=== PATIENT | female | born 1955 | race Caucasian/White ===

== ENCOUNTER 2022-06-05 20:04 | Emergency (ER) | payer MEDICARE, BC, SELFPAY ==
[2022-06-05] VITALS (10 sets, daily range): BP systolic 115–160; BP diastolic 70–94; PULSE 68–104; RESP 18; TEMP 36.4; O2SAT 66–99; BMI 30.9
--- NOTE | 2022-06-05 20:23 | CRLHL7_ITS ---
For Patients: As a result of the Century Cures Act, medical imaging exams and procedure reports are released immediately into your electronic medical record. You may view this report before your referring provider. If you have questions, please contact your health care provider. Indication: Right-sided abdominal pain Technique: Noncontrast CT abdomen and pelvis Comparison: CT and pelvis 09/23/2021 Findings: Heart size is mildly enlarged calcified left hilar lymph nodes strandy left upper lobe probable fibrotic change left upper lobe granuloma. 7 millimeter pulmonary nodule medial right lower lobe series 2, image 31 without change. Spleen adrenal glands pancreas unremarkable. As normal caliber abdominal aorta. 6 millimeter right distal ureteral stone causing moderate hydronephrosis and hydroureter. Additional nonobstructing right-sided renal calculi left kidney unremarkable. Urinary bladder unremarkable. There is diverticulosis No suspicious bony lesions are seen. Impression: 1. 6 millimeter right distal ureteral stone causing moderate hydronephrosis. 2. 7 millimeter pulmonary nodule per Fleischner society guidelines without change in 2020. Please note that all CT scans at this facility use dose modulation, iterative reconstruction, and/or weight-based dosing when appropriate to reduce radiation dose to as low as reasonably achievable. Dictated by Antoinette Aldrich MD @ 06/05/2022 9:51:37 PM (Electronically Signed)
[2022-06-05] MEDS: KETOROLAC 30 MG/ML inj 15 MG IVP (20:25)
[2022-06-05] MEDS: HYDROmorphone 0.5 mg/0.5 ml inj IVP (20:26)
[2022-06-05] MEDS: ONDANSETRON 2 MG/ML inj 4 MG IVP (20:35)
--- NOTE | 2022-06-05 20:38 | ED_ITS ---
HPI - Abdominal Pain General Date Seen: 06/05/22 Chief Complaint: Abdominal Pain Stated Complaint: KIDNEY STONE/VOMITING Time Seen by Provider: 06/05/22 20:22 Source: patient and family Mode of arrival: wheelchair Limitations: no limitations History of Present Illness HPI narrative: Patient is 66-year-old female brought in ambulatory by wheelchair for acute onset of right groin pain that started approximately 1 hour ago this is associated with nausea vomiting, and feels like previous kidney stones that she has had. He has had previous surgery, for the stones, this is been sometime ago . She did take some Pepto-Bismol at home, but this did not help, for the last 2-3 days she has had some red urine possibly blood with associated with this. Denies any fevers chills or sweats, there is no blood in her vomitus, she has had no diarrhea, describes the pain as 10/10. There is no radiation to her back of the pain, did not start in her back and radiate down to the groin. MD elicited complaint: abdominal pain Pertinent past history: kidney stones Onset (ago): hour(s) (1) Pain Consistency: constant Location: diffuse and RLQ Severity: severe Quality: cramping Radiation: none Migration to: no migration and RLQ Exacerbating factors: movement Relieving factors: nothing Context: history of similar episodes Associated symptoms: nausea, vomiting and hematuria Treatments prior to arrival: antacids Related Data Home Medications Medication Instructions Recorded Confirmed amlodipine 5 mg tablet 5 mg PO DAILY 06/05/22 06/05/22 atenolol 50 mg tablet 50 mg PO DAILY 06/05/22 06/05/22 hydrochlorothiazide 25 mg tablet 25 mg PO DAILY 06/05/22 06/05/22 lisinopril 40 mg tablet 40 mg PO DAILY 06/05/22 06/05/22 potassium chloride 20 mEq 20 meq PO BID 06/05/22 06/05/22 tablet,extended release(part/cryst) warfarin 1 mg tablet 1 mg PO 06/05/22 Allergies Allergy/AdvReac Type Severity Reaction Status Date / Time iodine Allergy Severe Verified 06/05/22 20:21 Review of Systems Status of ROS Reports: 10 or more systems reviewed and unremarkable except as noted in History and below [facility] Medical History (Updated 06/05/22 @ 22:52 by Jose Howard MD) Asthma 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 Essential hypertension Hypertriglyceridemia Liver lesion Malignant carcinoid tumor of lung Nephrolithiasis Pulmonary embolism on right Renal stone Surgical History (Updated 06/05/22 @ 21:20 by Reed Echevarria RN) No significant past surgical history Social History Smoking Status: Never smoker Do you use any of these nicotine containing products: None How often do you have a drink containing alcohol: never How often do you have six or more drinks on one occasion: Never AUDIT-C Alcohol total score: 0 Non-prescribed substance use: denies use Exam Narrative: Exam Narrative: I see a woman in moderate distress, retching, shaking also. Her vital signs are stable, Patient is speaking normally, no problem with slurring words, oriented x3. Head eyes ears nose and throat exam show equal pupils, no scleral icterus, extraocular muscles are normal, no facial droop, speech is normal, trachea normal and midline. Thyroid normal midline palpable not enlarged. Chest shows symmetrical rise bilaterally, normal auscultation with no wheezes, no increased work of breathing, no overt bruising or lesions seen, no tenderness is noted on auscultation. Heart sounds normal with no S3-S4 no murmurs clicks or gallops. Abdomen shows no obvious masses or hepatosplenomegaly, no organomegaly, bowel sounds are normal in all quadrants. No tenderness is noted also in all quadrants. Upper and lower extremities show normal power, normal range of motion, pulses are normal, sensations normal, fine motor movements are normal, pelvis is stable to rocking. Cervical spine shows normal range of motion, and palpably not tender. Thoracic spine shows normal range of motion, and palpably not tender, lumbar spine shows no tenderness to palpation percussion and is otherwise normal range of motion. Skin shows no rashes, petechiae or eccymosis. No reproducible abdominal pain is seen, there is no CVA tenderness, Const: Vital Signs, click to edit/add: Vital Signs - 24 hr 06/05/22 20:14 06/05/22 20:25 06/05/22 21:10 Temperature 97.5 F L 97.5 F L 97.5 F L Pulse Rate Pulse Rate [Pulse Oximeter] 104 H Respiratory Rate 18 Blood Pressure Blood Pressure [Le ft Upper Arm] 160/94 H Pulse Oximetry Oxygen Delivery Me thod Room Air Oxygen Flow Rate 06/05/22 20:32 06/05/22 20:33 06/05/22 20:38 Temperature Pulse Rate 83 87 77 Pulse Rate [Pulse Oximeter] Respiratory Rate Blood Pressure 141/92 H 143/79 H Blood Pressure [Le ft Upper Arm] Pulse Oximetry 67 L 66 L 94 Oxygen Delivery Me thod Oxygen Flow Rate 06/05/22 21:31 06/05/22 22:02 06/05/22 22:31 Temperature Pulse Rate 72 68 73 Pulse Rate [Pulse Oximeter] Respiratory Rate Blood Pressure 121/77 115/70 123/71 Blood Pressure [Le ft Upper Arm] Pulse Oximetry 99 99 94 Oxygen Delivery Me thod Oxygen Flow Rate 06/05/22 20:35 Temperature Pulse Rate Pulse Rate [Pulse Oximeter] Respiratory Rate Blood Pressure Blood Pressure [Le ft Upper Arm] Pulse Oximetry 97 Oxygen Delivery Me thod Nasal Cannula Oxygen Flow Rate 2 Documenting provider has reviewed patient's vital signs: yes Course Course Hospital Course: Patient's pain improved markedly with the Toradol, the Dilaudid, she initially had some low oxygen levels requiring oxygen with the Dilaudid, she was weaned off and was on room air and able to ambulate normally by the end. This point I think it would be reasonable to discharge her home, with oral medications for pain, have her follow up with primary care return here if signs and symptoms of worsening. Her and her partner were agreeable to this. Vital Signs Vital signs: Initial Vital Signs Temperature 97.5 F L 06/05/22 20:14 Temperature Source Temporal Artery Scan 06/05/22 20:14 Pulse Rate 104 H 06/05/22 20:14 Respiratory Rate 18 06/05/22 20:14 Blood Pressure 160/94 H 06/05/22 20:14 Blood Pressure Mean 116 06/05/22 20:14 Blood Pressure Position Sitting 06/05/22 20:14 Oxygen Delivery Method 06/05/22 20:14 Vital Signs Temperature 97.5 F L 06/05/22 20:14 Pulse Rate 104 H 06/05/22 20:14 Respiratory Rate 18 06/05/22 20:14 Blood Pressure 160/94 H 06/05/22 20:14 Oxygen Delivery Method 06/05/22 20:14 Temperature 97.5 F L 06/05/22 21:10 Pulse Rate 73 06/05/22 22:31 Respiratory Rate 18 06/05/22 20:14 Blood Pressure 123/71 06/05/22 22:31 Pulse Oximetry 94 06/05/22 22:31 Oxygen Delivery Method 06/05/22 20:35 Oxygen Flow Rate 2 06/05/22 20:35 MDM - Abdominal Pain MDM Narrative Medical decision making narrative: During the evaluation of this patient I considered multiple differential diagnosis including life-threatening differentials which are appendicitis, aortic aneurysm, mesenteric ischemia, bowel perforation, ectopic , vol vulus and bowel obstruction, other differential diagnosis include but are not limited to inflammatory bowel disease, cholecystitis, pancreatitis, hepatitis, gastritis, GERD, diverticulitis, peptic ulcer disease, pyelonephritis/UTI, renal colic/stone, pelvic inflammatory disease, cervicitis, endometritis, intrauterine , dysfunctional uterine bleeding, ovarian cyst/torsion, spontaneous as well as other etiologies Medical Records Attestation: I reviewed the patient's medical records. Lab Data Attestation: I reviewed the patient's lab results. Labs: Lab Results 06/05/22 06/05/22 06/05/22 Range/Units 20:24 20:24 21:07 WBC 10.59 (4.50-11.00) K/uL RBC 5.04 (4.00-5.20) m/uL Hgb 14.2 (12.0-16.0) gm/dL Hct 44.6 (33.0-51.0) % MCV 89 (80-100) fL MCH 28 (26-34) pg MCHC 32 (32-36) gm/dL RDW Coeff of Zohaib 13.4 (11.5-15.5) % Plt Count 395 (140-440) K/uL Neut % (Auto) 69.7 (42.0-72.0) % Lymph % (Auto) 20.8 (20-44) % [place] % (Auto) 7.4 (0.0-11.0) % Eos % (Auto) 1.6 (0.0-7.0) % Baso % (Auto) 0.4 (0.0-3.0) % Neut # (Auto) 7.39 H (1.7-7.0) K/uL Lymph # (Auto) 2.20 (0.90-2.90) K/uL [place] # (Auto) 0.80 (0.00-0.90) K/UL Eos # (Auto) 0.17 (0.00-0.50) K/uL Baso # (Auto) 0.04 (0.00-0.30) K/uL Abs Immat Gran (auto) 0.01 (0.00-0.30) K/uL Sodium 143 (135-149) mmol/L Potassium 3.6 (3.6-5.1) mmol/L Chloride 104 (96-114) mmol/L Carbon Dioxide 28 (20-32) mmol/L BUN 24 (7-30) mg/dL Creatinine 1.1 (0.5-1.5) mg/dL Estimated Creat Clear 42.86 Estimated GFR 55 ml/min Glucose 177 H (60-115) mg/dL Calcium 9.3 (8.4-10.6) mg/dL Urine Color Brown A (Yellow) Urine Appearance Cloudy A (Clear) Urine pH 5.5 (5.0-8.5) Ur Specific [place] 1.025 (1.000-1.030) Urine Protein 2+ A (Negative) Urine Glucose (UA) Negative (Negative) Urine Ketones Negative (Negative) Urine Blood 3+ A (Negative) Urine Nitrite Negative (Negative) Urine Bilirubin 1+ A (Negative) Urine Urobilinogen 0.2 (0.2-1.0) Ur Leukocyte Esterase Negative (Negative) Urine RBC >100 A (0-2) Urine WBC 2-5 (0-5) Ur Squamous Epith Cells Few (None-Few) Amorphous Sediment Many A (None) Other Sediment YEAST (None) Urine Bacteria Many A (None) Imaging Data CT scan - abdomen: Attestation: I have reviewed the pertinent imaging results. My impression: Large right-sided mid ureter stone with moderate hydronephrosis is noted. Stone measures 4 x 6 mm. Radiologist's impression: Patient: HERNANDO LEON Facility:?[facility] Patient ID:?[id number] Site Patient ID:?[id number]. Site :?[id number] Study:?CT Abdomen/Pelvis without contrast stone study-06/05/2022 9:08:36 PM Ordering Physician:?Seper Jose Final Report: Indication: Right-sided abdominal pain Technique: Noncontrast CT abdomen and pelvis Comparison: CT and pelvis 09/23/2021 Findings: Heart size is mildly enlarged calcified left hilar lymph nodes strandy left upper lobe probable fibrotic change left upper lobe granuloma. 7 millimeter pulmonary nodule medial right lower lobe series 2, image 31 without change. Spleen adrenal glands pancreas unremarkable. As normal caliber abdominal aorta. 6 millimeter right distal ureteral stone causing moderate hydronephrosis and hydroureter. Additional nonobstructing right-sided renal calculi left kidney unremarkable. Urinary bladder unremarkable. There is diverticulosis No suspicious bony lesions are seen. Impression: 1. 6 millimeter right distal ureteral stone causing moderate hydronephrosis. 2. 7 millimeter pulmonary nodule per Fleischner society guidelines without change in 2020. Please note that all CT scans at this facility use dose modulation, iterative reconstruction, and/or weight-based dosing when appropriate to reduce radiation dose to as low as reasonably achievable. Dictated by Antoinette Aldrich MD @ 06/05/2022 9:51:37 PM (Electronic Signature) Discharge Plan Discharge Clinical Impression: Renal colic on right side Patient Disposition: Home w/ Parent or Adult Condition: Improved Instructions: Renal Colic (ED) Additional Instructions: Home rest use of medications as directed, ibuprofen 800 mg p.o. t.i.d., Zofran for vomiting, narcotic medication as needed p.r.n.. Please use lots of fluids, and also follow-up with primary care within the next 3 days for recheck. Return here if increasing vomiting, fevers chills, or other issues. Prescriptions: No Action amlodipine 5 mg tablet 5 mg PO DAILY atenolol 50 mg tablet 50 mg PO DAILY hydrochlorothiazide 25 mg tablet 25 mg PO DAILY lisinopril 40 mg tablet 40 mg PO DAILY potassium chloride 20 mEq tablet,ER particles/crystals 20 meq PO BID warfarin 1 mg tablet 1 mg PO Label Comments: take by mouth 2mg every Mon, , Th; 1mg all other days Follow Up/Referrals: Amy Mclaughlin DO [Primary Care Provider] - Stand Alone Forms: Move In History Info Instructions
[2022-06-05] MEDS: 0.9 % SODIUM CHLORIDE 1000 ml 1,000 ML IV (20:45)
[2022-06-05 21:05] LABS: Basophils Absolute Auto 0.04 K/uL (0.00-0.30); Basophils Percent Auto 0.4 % (0.0-3.0); Eosinophils Absolute Auto 0.17 K/uL (0.00-0.50); Eosinophils Percent Auto 1.6 % (0.0-7.0); Hematocrit 44.6 % (33.0-51.0); Hemoglobin* 14.2 gm/dL (12.0-16.0); Immature Granulocytes Abs Auto 0.01 K/uL (0.00-0.30); Lymphocytes Percent Auto 20.8 % (20-44); Mean Corpuscular HGB Conc 32 gm/dL (32-36); Mean Corpuscular Hemoglobin 28 pg (26-34); Mean Corpuscular Volume 89 fL (80-100); Monocytes Percent Auto 7.4 % (0.0-11.0); Neutrophils Absolute Auto 7.39 K/uL (1.7-7.0); Neutrophils Percent Auto 69.7 % (42.0-72.0); Platelet Count* 395 K/uL (140-440); RDW Coefficient of Variation % 13.4 % (11.5-15.5); Red Blood Count 5.04 m/uL (4.00-5.20); White Blood Count* 10.59 K/uL (4.50-11.00)
[2022-06-05 21:10] LABS: Slide Review Reflex No
[2022-06-05 21:19] LABS: Appearance Urine Cloudy (Clear); Bilirubin Urine 1+ (Negative); Blood Urine 3+ (Negative); Color Urine Brown (Yellow); Glucose Urine Negative (Negative); Ketones Urine Negative (Negative); Leukocyte Esterase Urine Negative (Negative); Nitrite Urine Negative (Negative); Protein Urine 2+ (Negative); Specific Gravity Urine 1.025 (1.000-1.030); Urobilinogen Urine 0.2 (0.2-1.0); pH Urine 5.5 (5.0-8.5)
[2022-06-05 21:24] LABS: Blood Urea Nitrogen* 24 mg/dL (7-30); Calcium* 9.3 mg/dL (8.4-10.6); Carbon Dioxide* 28 mmol/L (20-32); Chloride* 104 mmol/L (96-114); Creatinine* 1.1 mg/dL (0.5-1.5); Est. Creatinine Clearance* 42.86; Estimated Glomerular Filt Rate 55 ml/min; Glucose* 177 mg/dL (60-115); Potassium* 3.6 mmol/L (3.6-5.1); Sodium* 143 mmol/L (135-149)
[2022-06-05 21:30] LABS: Amorphous Sediment Urine Many; Bacteria Urine Many; RBC Urine >100 (0-2); Squamous Epithelial Cell Urine Few (None-Few)
[2022-06-05 21:31] LABS: Other Sediment Urine YEAST
--- NOTE | 2022-06-05 22:51 | ED.NURSE ---
pt walked around ER, returned to room on room air and was 86% oximetry, updated.
== END 2022-06-05 23:02 | disposition home or self-care (01) ==
PROVIDERS: Emergency Provider Family Medicine; PCP Family Medicine
DX: N20.0 Calculus of kidney (principal)
CPT/HCPCS: 36415; 74176; 80048; 81001; 85025; 87086; 96374; 96375; 99284; 99285; J1170; J1885; J2405; J7030

== ENCOUNTER 2023-06-19 07:00 | Outpatient (CLI) | payer MEDICARE, BC, SELFPAY ==
--- NOTE | 2023-06-19 08:42 | W.ANESCHARGE ---
Anesthesia Charges Start Date/Time Anesthesia Start Date: 06/19/23 Anesthesia Start Time: 08:20 Stop Date/Time Anesthesia Stop Date: 06/19/23 Anesthesia Stop Time: 08:41
--- NOTE | 2023-06-19 09:42 | W.ANESCHARGE ---
Anesthesia Charges Start Date/Time Anesthesia Start Date: 06/19/23 Anesthesia Start Time: 08:20 Stop Date/Time Anesthesia Stop Date: 06/19/23 Anesthesia Stop Time: 08:41
== END 2023-06-19 07:01 | disposition home or self-care (01) ==
LOC: OP CLINIC 07:01
PROVIDERS: PCP Family Medicine; Visit Provider Internal Medicine Gastroenterology
DX: Z12.11 Encounter for screening for malignant neoplasm of colon (principal); K64.4 Residual hemorrhoidal skin tags; K64.8 Other hemorrhoids; Z86.010 Personal history of colon polyps
CPT/HCPCS: 00811; 00812; 45378; J2704

== ENCOUNTER 2023-08-13 12:12 | Emergency (ER) | payer MEDICARE, BC, SELFPAY ==
[2023-08-13 12:22] VITALS: BP 158/94; PULSE 87; RESP 18; TEMP 36.9; O2SAT 100; BMI 27.5
--- NOTE | 2023-08-13 12:40 | ED_ITS ---
HPI - General Adult General Chief complaint: Ear/Nose/Throat Problem Stated complaint: Throat pain on one side, difficulty breathing Time Seen by Provider: 08/13/23 12:32 History of Present Illness HPI narrative: Patient is a 59 year white female who is takes multiple medications she was taking them this morning about 10:00 a.m. and she felt some things persistently in her left side of her throat. She is able to swallow water she has got 100% O2 sat. She was concerned about this and came to the ER. She also thought she might have a sore tooth on that left side, but has not any fever chills. She is able to swallow water has not vomited, is able to eat normally. Related Data Home Medications Medication Instructions Recorded Confirmed amlodipine 5 mg tablet 5 mg PO DAILY 06/05/22 06/05/22 atenolol 50 mg tablet 50 mg PO DAILY 06/05/22 06/05/22 hydrochlorothiazide 25 mg tablet 25 mg PO DAILY 06/05/22 06/05/22 lisinopril 40 mg tablet 40 mg PO DAILY 06/05/22 06/05/22 potassium chloride 20 mEq 20 meq PO BID 06/05/22 06/05/22 tablet,extended release(part/cryst) warfarin 1 mg tablet 1 mg PO 06/05/22 Allergies Allergy/AdvReac Type Severity Reaction Status Date / Time iodine Allergy Severe Verified 08/13/23 12:26 Review of Systems Status of ROS: Reports: 6 or more systems reviewed and unremarkable except as noted in History and below [facility] Medical History Atypical ductal hyperplasia of left breast ?N60.92 - Unspecified benign mammary dysplasia of left breast (ICD-10) 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 - Malignant carcinoid tumor of the bronchus and lung (ICD-10) Hypertriglyceridemia ?E78.1 - Pure hyperglyceridemia (ICD-10) Liver lesion ?K76.9 - Liver disease, unspecified (ICD-10) Renal stone ?N20.0 - Calculus of kidney (ICD-10) Pulmonary embolism on right ?I26.99 - Other pulmonary embolism without acute cor pulmonale (ICD-10) Carcinoid tumor of lung ?D3A.090 - Benign carcinoid tumor of the bronchus and lung (ICD-10) Nephrolithiasis ?N20.0 - Calculus of kidney (ICD-10) Asthma ?J45.909 - Unspecified asthma, uncomplicated (ICD-10) Essential hypertension ?I10 - Essential (primary) hypertension (ICD-10) Surgical History No significant past surgical history Social History Smoking Status: Never smoker Do you use any of these nicotine containing products: None How often do you have a drink containing alcohol: never How often do you have six or more drinks on one occasion: Never AUDIT-C Alcohol total score: 0 Non-prescribed substance use: denies use Exam Narrative: Exam Narrative: Objective: Patient's vital signs are within normal limits other than slightly elevated systolic pressure, O2 sats 100% on room air, patient is noncyanotic Patient is alert orient x3 Mouth exam is clear no redness or erythema throat is clear, neck supple, pulse regular Const: Vital Signs, click to edit/add: Vital Signs - 24 hr 08/13/23 12:22 Temperature 98.5 F Pulse Rate [Right Pulse Oximeter] 87 Respiratory Rate 18 Blood Pressure [Ri ght Upper Arm] 158/94 H Pulse Oximetry 100 Oxygen Delivery Me thod Room Air Course Vital Signs Vital signs: Initial Vital Signs Temperature 98.5 F 08/13/23 12:22 Temperature Source Temporal Artery Scan 08/13/23 12:22 Pulse Rate 87 08/13/23 12:22 Pulse Rhythm Regular 08/13/23 12:22 Pulse Strength 3+ Normal 08/13/23 12:22 Respiratory Rate 18 08/13/23 12:22 Blood Pressure 158/94 H 08/13/23 12:22 Blood Pressure Mean 115 H 08/13/23 12:22 Blood Pressure Position Supine 08/13/23 12:22 Pulse Oximetry 100 08/13/23 12:22 Oxygen Delivery Method Room Air 08/13/23 12:22 Vital Signs Temperature 98.5 F 08/13/23 12:22 Pulse Rate 87 08/13/23 12:22 Respiratory Rate 18 08/13/23 12:22 Blood Pressure 158/94 H 08/13/23 12:22 Pulse Oximetry 100 11/05/23 12:22 Oxygen Delivery Method Room Air 08/13/23 12:22 Temperature 98.5 F 08/13/23 12:22 Pulse Rate 87 08/13/23 12:22 Respiratory Rate 18 08/13/23 12:22 Blood Pressure 158/94 H 08/13/23 12:22 Pulse Oximetry 100 08/13/23 12:22 Oxygen Delivery Method Room Air 08/13/23 12:22 Medical Decision Making MDM Narrative Medical decision making narrative: [age] year white female was taking her pills today and then had some discomfort on the left side of her throat. She is able to eat and drink normally no difficulty breathing. At this point I think she probably has a scratch to the throat area and I think we should observe this over the next 24 hours. If they continue to have symptoms and can return back to the ED and we can consult with endoscopy regarding looking to see if there is any foreign material, however she is able to eat and drink and I think this will likely be a scratch and should improve over time. Return to ED sooner problems or concerns. Also looking in her mouth she had poor dentition but I do not see any obvious infection. Discharge Plan Discharge Clinical Impression: Throat irritation Patient Disposition: Home w/ Parent or Adult Condition: Stable Additional Instructions: Normal diet, may take some Advil or Tylenol if needed, recheck tomorrow still having symptoms and we could consider endoscopy or look from above with our Endoscopy Department. I suspect you have a scratch from taking her pills in your throat and will have to see if this improves over the next day. Return sooner problems or concerns Activity Level: No Restrictions Discharge Diet: Regular Prescriptions: No Action amlodipine 5 mg tablet 5 mg PO DAILY atenolol 50 mg tablet 50 mg PO DAILY hydrochlorothiazide 25 mg tablet 25 mg PO DAILY lisinopril 40 mg tablet 40 mg PO DAILY potassium chloride 20 mEq tablet,ER particles/crystals 20 meq PO BID warfarin 1 mg tablet 1 mg PO Patient Comments: take by mouth 2mg every Mon, , ; 1mg all other days Follow Up/Referrals: Amy Mclaughlin DO [Primary Care Provider] - Stand Alone Forms: [facility] Info Instructions
== END 2023-08-13 12:51 | disposition home or self-care (01) ==
LOC: ED 12:46
PROVIDERS: Emergency Provider Family Medicine; PCP Family Medicine
DX: R07.0 Pain in throat (principal)
CPT/HCPCS: 99283

== ENCOUNTER 2023-08-28 01:14 | Outpatient (CLI) | payer MEDICARE, BC, SELFPAY | END 2023-08-28 01:15 | disposition home or self-care (01) | LOC: AMB 08-29 10:13 | PROVIDERS: PCP Family Medicine; Visit Provider Family Medicine | DX: R10.9 Unspecified abdominal pain (principal) | CPT/HCPCS: A0425; A0427 ==

== ENCOUNTER 2023-08-28 01:35 | Emergency (ER) | payer MEDICARE, BC, SELFPAY ==
[2023-08-28 01:39] VITALS: BP 174/82; PULSE 75; RESP 16; TEMP 36.4; O2SAT 99; BMI 37.2
--- NOTE | 2023-08-28 02:10 | CRLHL7_ITS ---
For Patients: As a result of the Century Cures Act, medical imaging exams and procedure reports are released immediately into your electronic medical record. You may view this report before your referring provider. If you have questions, please contact your health care provider. INDICATION: Right abdominal pain, history renal calculi TECHNIQUE: CT Abdomen and pelvis without i.v. contrast. Coronal and sagittal reformats were obtained. COMPARISON: 06/05/2022, 09/27/2020 FINDINGS: Lower chest: Volume loss in the left lung base is noted with pleural parenchymal scarring. There is a 7 mm round nodule in the medial right lower lobe noted without interval change from 2020. This stability in nearly 3 years is consistent with a benign etiology. Liver: Unremarkable. Spleen: Unremarkable. Pancreas: Unremarkable. Gallbladder: Unremarkable. Kidney: There is a 10 mm stone present within the distal right ureter with 2 smaller adjacent ureteral calculi present measuring up to 3 mm. These cause moderate right hydroureter and renal pelviectasis. At least 4 punctate non obstructing stones are seen within the right renal pelvis. The left kidney is unremarkable in appearance. Adrenal: Unremarkable. Bowel: Moderate diverticulosis of the sigmoid colon is present with no evidence of diverticulitis. The appendix is not identified. Vascular: Unremarkable. Lymph: Unremarkable. Peritoneum: Unremarkable. No pneumoperitoneum is seen. No significant ascites is noted. Pelvis: Unremarkable. Soft tissue: Unremarkable. Bone: Unremarkable for age. IMPRESSIONS: 1. There is a 10 mm stone present within the distal right ureter with 2 smaller adjacent ureteral calculi present measuring up to 3 mm. These cause moderate right hydroureter and renal pelviectasis. Dictated by Abundio Montes MD @ 08/28/2023 3:04:09 AM Please note that all CT scans at this facility use dose modulation, iterative reconstruction, and/or weight-based dosing when appropriate to reduce radiation dose to as low as reasonably achievable. Dictated by: Abundio Montes MD @ 08/28/2023 03:04:12 (Electronically Signed)
--- NOTE | 2023-08-28 02:19 | ED_ITS ---
HPI - General Adult General Chief complaint: Abdominal Pain Stated complaint: abdominal pain Time Seen by Provider: 08/28/23 01:50 Source: patient, family and EMS Mode of arrival: EMS Limitations: no limitations History of Present Illness HPI narrative: 67-year-old female presents the emergency department with right lower quadrant abdominal pain for the past 2 hours. Last bowel movement was about an hour ago, uncomplicated. No diarrhea, no blood. She is not experiencing any nausea or vomiting. Pain was sudden onset with no injury or trauma. Feel similar to when she had a kidney stone about 10 years ago. Reports that those records are in [place], I do not have access to those records. Appetite has been normal. Reports her urine has been a little darker than usual for the last 2 days but she did not think much of it. No known sick contacts. No dysuria. It sounds like 10 years ago she had a stent placed for her kidney stone and then the stent was removed with no further complications. No kidney stones since. Pain was rather sudden onset, not gradual. No history of bowel obstruction. Tried taking 1 Tylenol tablet of 325 mg with no significant improvement in her symptoms. It is not surprising that this dose did not help. She reports an allergy Zofran that sounds like she was given the medication and it made her jittery when she had a kidney stone 10 years ago. I am uncertain if it was more the other medications or her clinical condition but she is not experiencing nausea at this time therefore it will not need to be challenged. She also reports a contrast dye allergy but has tolerated premedication with no difficulty in the past. Past medical history is notable for pulmonary embolism, she is anticoagulated long-term on Coumadin. Also hypertension on 4 agents. Denies history of coronary artery disease. She has a history of lung cancer and reports that they are watching a spot on her right lung and she has had partial lung removal on the left side x2 for lung cancer in 2005 in 2010. She is a nonsmoker. Medications reviewed. In addition to what is listed, she reports that she also uses Premarin vaginally about once a month. ROS is notable for the GI and musculoskeletal an urinary symptoms as above. Otherwise denies times 12 systems. Related Data Home Medications Medication Instructions Recorded Confirmed amlodipine 5 mg tablet 5 mg PO DAILY 06/05/22 06/05/22 atenolol 50 mg tablet 50 mg PO DAILY 06/05/22 06/05/22 hydrochlorothiazide 25 mg tablet 25 mg PO DAILY 06/05/22 06/05/22 lisinopril 40 mg tablet 40 mg PO DAILY 06/05/22 06/05/22 potassium chloride 20 mEq 20 meq PO BID 06/05/22 06/05/22 tablet,extended release(part/cryst) warfarin 1 mg tablet 1 mg PO 06/05/22 Previous Rx's Medication Instructions Recorded oxycodone 5 mg tablet 5 mg PO Q8H PRN pain #8 tabs 08/28/23 Allergies Allergy/AdvReac Type Severity Reaction Status Date / Time iodine Allergy Severe Verified 08/13/23 12:26 [facility] Medical History Atypical ductal hyperplasia of left breast ?N60.92 - Unspecified benign mammary dysplasia of left breast (ICD-10) 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 - Malignant carcinoid tumor of the bronchus and lung (ICD-10) Hypertriglyceridemia ?E78.1 - Pure hyperglyceridemia (ICD-10) Liver lesion ?K76.9 - Liver disease, unspecified (ICD-10) Renal stone ?N20.0 - Calculus of kidney (ICD-10) Pulmonary embolism on right ?I26.99 - Other pulmonary embolism without acute cor pulmonale (ICD-10) Carcinoid tumor of lung ?D3A.090 - Benign carcinoid tumor of the bronchus and lung (ICD-10) Nephrolithiasis ?N20.0 - Calculus of kidney (ICD-10) Asthma ?J45.909 - Unspecified asthma, uncomplicated (ICD-10) Essential hypertension ?I10 - Essential (primary) hypertension (ICD-10) Surgical History No significant past surgical history Social History Smoking Status: Never smoker Do you use any of these nicotine containing products: None How often do you have a drink containing alcohol: never How often do you have six or more drinks on one occasion: Never AUDIT-C Alcohol total score: 0 Non-prescribed substance use: denies use Exam Const: Vital Signs, click to edit/add: Vital Signs - 24 hr 08/28/23 01:39 08/28/23 03:09 Temperature 97.5 F L Pulse Rate [Pulse Oximeter] 75 75 Respiratory Rate 16 16 Blood Pressure [Ri ght Upper Arm] 174/82 H 154/81 H Pulse Oximetry 99 96 Oxygen Delivery Me thod Room Air Room Air Documenting provider has reviewed patient's vital signs: yes Common normals: no apparent distress General appearance: cooperative Other: Moderate historian. HENMT: Common normals: normocephalic Head and scalp: normocephalic Face and sinus: normal facial exam Mouth: oral and palatal mucosa normal Throat: posterior oropharynx normal Eye: Common normals: conjunctivae normal General eye: normal appearance of both eyes Conjunctiva: conjunctiva(e) normal Neck & C-Spine: Common normals: full ROM and no lymphadenopathy Resp: Common normals: normal respiratory effort and no use of accessory muscles Effort & inspection: able to speak in complete sentences Other: Decreased breath sounds on the left side which is not unexpected with her history. No obvious crackle or wheeze. Cardio: Common normals: regular rate, regular rhythm, S1 normal heart sound and S2 normal heart sound Rate: regular rate Rhythm: regular rhythm Heart sounds: S1 normal and S2 normal GI: Common normals: Normal to inspection, nondistended, normoactive bowel sounds present, soft to palpation, no hepatosplenomegaly and no masses Palpation: soft and no hepatosplenomegaly Other: Tender to palpation of right lower quadrant but it does seem a bit diffuse. Ce rtainly no rebound tenderness or guarding : Common normals: no CVA tenderness Bladder/kidney exam: no CVA tenderness Back & Pelvis: Common normals: no CVA tenderness Extremity: Common normals: normal capillary refill Other: Trace dependent appearing edema. Neuro: Common normals: moves all extremities and no focal motor deficits Speech: speech normal Psych: Appearance: grossly normal Attitude: engaged Insight: insight good Judgement: judgment good Skin: Common normals: no rashes or lesions noted General skin exam: no rashes or lesions noted Course Course ED Course: Patient is already receiving a 0.5 L of normal saline from EMS. Will administer 15 mg of Toradol. Differential diagnosis including appendicitis, bowel obstruction, volvulus, pancreatitis, kidney stone, complicated urinary infection, among others. Recommend basic screening labs, urinalysis. Patient is allergic to contrast dye. Counseled patient that we certainly could perform CT with contrast and premedication but we may be able to see what we are looking for without the use of contrast dye. I recommend we proceed with CT scan if results are inconclusive that we repeat it with premedication and contrast dye. She was understanding of my rationale for this. Sudden onset of pain and similar prior history are suggestive mostly for kidney stone. Dark urine is also suspicious for recent hematuria. Await findings. Reevaluation(s) Time of Reevaluation #1: 03:21 Reevaluation #1: Preliminary CT findings reviewed with patient, right large ureteral stone noted, unlikely to pass without assistance. No signs of infection, hemorrhage or other complication noted on lab findings which is reassuring. She reported that the Toradol did not help with her pain but she is visibly much more comfortable. Will give 5 mg of oral oxycodone. Counseled patient that I will need to talk to Urology regarding next steps in care as she will need a procedure to help the stone pass. I did speak with Urology, Dr. Correia(sp?), and he is recommending outpatient treatment. Since there are no signs of infection, sepsis, hemorrhage or other worry, this can be done outpatient. Patient is to be given the clinic number to call and schedule her outpatient follow-up. She was instructed on this and verbalizes understanding. I counseled her on pain control with Tylenol, ibuprofen and limited oxycodone if needed. We reviewed the alarm symptoms that would warrant ED presentation showed ches weakness, fever, persistent vomiting. She should come back right away if these happen. She will hold her Coumadin at the recommendation of the urologist. I do feel like this is safe to do. It will need to be restarted after procedure, sooner if we anticipate a long wait for appointment. Written instructions provided all questions answered. Vital Signs Vital signs: Initial Vital Signs Temperature 97.5 F L 08/28/23 01:39 Temperature Source Temporal Artery Scan 08/28/23 01:39 Pulse Rate 75 08/28/23 01:39 Respiratory Rate 16 08/28/23 01:39 Blood Pressure 174/82 H 08/28/23 01:39 Blood Pressure Mean 112 H 08/28/23 01:39 Blood Pressure Position Supine 08/28/23 01:39 Pulse Oximetry 99 08/28/23 01:39 Oxygen Delivery Method Room Air 08/28/23 01:39 Vital Signs Temperature 97.5 F L 08/28/23 01:39 Pulse Rate 75 08/28/23 01:39 Respiratory Rate 16 08/28/23 01:39 Blood Pressure 174/82 H 08/28/23 01:39 Pulse Oximetry 99 08/28/23 01:39 Oxygen Delivery Method Room Air 08/28/23 01:39 Temperature 97.5 F L 08/28/23 01:39 Pulse Rate 75 08/28/23 03:09 Respiratory Rate 16 08/28/23 03:09 Blood Pressure 154/81 H 08/28/23 03:09 Pulse Oximetry 96 08/28/23 03:09 Oxygen Delivery Method Room Air 08/28/23 03:09 Medications Administered Medications: Generic Name Dose Route Start Last Admin Trade Name Freq PRN Reason Stop Dose Admin Ketorolac Tromethamine 15 mg 08/28/23 02:12 08/28/23 02:23 Ketorolac 15 Mg/Ml Inj IVP 08/28/23 02:13 15 mg ONCE ONE Administration Oxycodone HCl 5 mg 08/28/23 03:01 08/28/23 03:05 Oxycodone 5 Mg Tablet PO 08/28/23 03:02 5 mg ONCE ONE Administration Medical Decision Making Lab Data Lab results reviewed: Yes I reviewed the patient's lab results Lab results narrative: No signs of hemorrhage, infection or other complication. Creatinine clearance pretty good for comorbidities. Labs: Lab Results 08/28/23 08/28/23 Range/Units 02:30 02:54 WBC 8.83 (4.50-11.00) K/uL RBC 4.82 (4.00-5.20) m/uL Hgb 13.6 (12.0-16.0) gm/dL Hct 42.6 (33.0-51.0) % MCV 88 (80-100) fL MCH 28 (26-34) pg MCHC 32 (32-36) gm/dL RDW Coeff of Zohaib 13.4 (11.5-15.5) % Plt Count 359 (140-440) K/uL Neut % (Auto) 73.5 H (42.0-72.0) % Lymph % (Auto) 17.3 L (20-44) % [place] % (Auto) 7.0 (0.0-11.0) % Eos % (Auto) 1.9 (0.0-7.0) % Baso % (Auto) 0.2 (0.0-3.0) % Neut # (Auto) 6.50 (1.7-7.0) K/uL Lymph # (Auto) 1.50 (0.90-2.90) K/uL [place] # (Auto) 0.60 (0.00-0.90) K/UL Eos # (Auto) 0.17 (0.00-0.50) K/uL Baso # (Auto) 0.02 (0.00-0.30) K/uL Abs Immat Gran (auto) 0.01 (0.00-0.30) K/uL Imm/Tot Granulo (auto) 0.1 % INR 2.29 H (0.91-1.10) Sodium 141 (135-149) mmol/L Potassium 3.4 L (3.6-5.1) mmol/L Chloride 106 (96-114) mmol/L Carbon Dioxide 22 (20-32) mmol/L Anion Gap 13 (7-15) mEq/L BUN 19 (7-30) mg/dL Creatinine 0.9 (0.5-1.5) mg/dL Estimated Creat Clear 46.50 Estimated GFR 70 ml/min Glucose 143 H (60-115) mg/dL Lactate 2.6 H (0.5-1.9) mmol/L Calcium 9.1 (8.4-10.6) mg/dL Total Bilirubin 0.9 (0.1-1.5) mg/dL AST 30 (12-35) U/L ALT 23 (4-35) U/L Alkaline Phosphatase 97 (40-150) U/L C-Reactive Protein 1.1 H (0.5-1.0) mg/dL Total Protein 8.0 (6.0-8.3) g/dL Albumin 4.2 (3.3-5.0) g/dL Lipase 142 (23-300) U/L Urine Color Red A (Yellow) Urine Appearance Cloudy A (Clear) Urine pH 6.5 (5.0-8.5) Ur Specific [place] 1.025 (1.000-1.030) Urine Protein 2+ A (Negative) Urine Glucose (UA) Negative (Negative) Urine Ketones 1+ A (Negative) Urine Blood 3+ A (Negative) Urine Nitrite Negative (Negative) Urine Bilirubin Negative (Negative) Urine Urobilinogen 0.2 (0.2-1.0) Ur Leukocyte Esterase Trace A (Negative) Urine RBC >100 A (0-2) Urine WBC 25-50 A (0-5) Ur Squamous Epith Cells Moderate A (None-Few) Urine Bacteria Moderate A (None) Imaging Data CT scan - abdomen: Attestation: I have reviewed the pertinent imaging results. My impression: Large 9 mm kidney stone with several other smaller satellite stones right ureter, right hydronephrosis, no other abnormalities Radiologist's impression: IMPRESSIONS: 1. There is a 10 mm stone present within the distal right ureter with 2 smaller adjacent ureteral calculi present measuring up to 3 mm. These cause moderate right hydroureter and renal pelviectasis. Dictated by Abundio Montes MD @ 08/28/2023 3:04:09 AM Discharge Plan Discharge Clinical Impression: Right ureteral stone Patient Disposition: Home w/ Parent or Adult Condition: Improved Instructions: Ureteral Stones (ED), Ureteral Stent Placement (DC) Additional Instructions: As we discussed, you have a large stone in the right ureter. This is the tube that drains from your kidney to your bladder. Yours is about 1 cm and there are a couple of smaller stones behind it which are inconsequential. Luckily, there are no signs of infection or other complication. I have spoken with the urologist. He agrees that an intervention will need to happen. They would like to see you in the office this week. When the office opens in the morning, please call and request an appointment. I need you to specifically tell them as below: ?I was seen in the emergency department last night and was told that I have a 1 cm ureteral stone. The ER doctor spoke with the Urology physician on-call and has requested that I be seen in the clinic this week. I was told to hold my Coumadin and that there were no other signs of infection or complication. They will give you an appointment date and time. The urologist will decide if this needs lithotripsy, a stent or a different procedure. Unfortunately, it may be a bit of a drive. It is important that you are seen as soon as possible. Do not take your Coumadin as we discussed. Your INR today was 2.27. You will restart your Coumadin based on recommendations from your urologist or primary care physician. For pain, I recommend Tylenol 1000 mg every 6 hours, this is 2 extra-strength or 3 standard dose Tylenol. If this is not working, you may use ibuprofen 600 mg every 6 hours. You may alternate between the 2 for better pain control. I will give you a small supply of oxycodone to use if the pain is severe. Remember that this may cause some nausea and constipation. Hopefully you do not need this medication. If you began having high fever, persistent vomiting or weakness, you need to be re-evaluated in the emergency department. As we discussed, you will need urology services that we do not offer at our hospital. You would need to be transferred to a larger hospital such as [facility] or other similar large hospital. Some patients find it helpful to present there instead if that particular specialty is needed. We are more than happy to help treat any complications from this stone and can make sure you get transferred for adequate care if that is needed as well. Activity Level: Activity as Tolerated Discharge Diet: Regular Prescriptions: New oxycodone 5 mg tablet 5 mg PO Q8H PRN (Reason: pain) Qty: 8 0RF No Action amlodipine 5 mg tablet 5 mg PO DAILY atenolol 50 mg tablet 50 mg PO DAILY hydrochlorothiazide 25 mg tablet 25 mg PO DAILY lisinopril 40 mg tablet 40 mg PO DAILY potassium chloride 20 mEq tablet,ER particles/crystals 20 meq PO BID warfarin 1 mg tablet 1 mg PO Patient Comments: take by mouth 2mg every Mon, , ; 1mg all other days Follow Up/Referrals: Amy Mclaughlin DO [Primary Care Provider] - Stand Alone Forms: [id number] Info Instructions
[2023-08-28] MEDS: KETOROLAC 15 MG/ML inj IVP (02:23)
[2023-08-28 02:34] LABS: Lactate* 2.6 mmol/L (0.5-1.9)
[2023-08-28 02:38] LABS: Basophils Absolute Auto 0.02 K/uL (0.00-0.30); Basophils Percent Auto 0.2 % (0.0-3.0); Eosinophils Absolute Auto 0.17 K/uL (0.00-0.50); Eosinophils Percent Auto 1.9 % (0.0-7.0); Hematocrit 42.6 % (33.0-51.0); Hemoglobin* 13.6 gm/dL (12.0-16.0); Immature Granulocytes Abs Auto 0.01 K/uL (0.00-0.30); Immature Granulocytes Pct Auto 0.1 %; Lymphocytes Percent Auto 17.3 % (20-44); Mean Corpuscular HGB Conc 32 gm/dL (32-36); Mean Corpuscular Hemoglobin 28 pg (26-34); Mean Corpuscular Volume 88 fL (80-100); Neutrophils Percent Auto 73.5 % (42.0-72.0); Platelet Count* 359 K/uL (140-440); RDW Coefficient of Variation % 13.4 % (11.5-15.5); Red Blood Count 4.82 m/uL (4.00-5.20); White Blood Count* 8.83 K/uL (4.50-11.00)
[2023-08-28 02:39] LABS: Slide Review Reflex No
[2023-08-28 02:51] LABS: Albumin* 4.2 g/dL (3.3-5.0); Chloride* 106 mmol/L (96-114); Sodium* 141 mmol/L (135-149)
[2023-08-28 02:52] LABS: Potassium* 3.4 mmol/L (3.6-5.1)
[2023-08-28 02:53] LABS: Creatinine* 0.9 mg/dL (0.5-1.5); Estimated Glomerular Filt Rate 70 ml/min; INR 2.29 (0.91-1.10); Prothrombin Time 26.9 Seconds
[2023-08-28 02:54] LABS: Alanine Aminotransferase* 23 U/L (4-35); Alkaline Phosphatase* 97 U/L (40-150); Anion Gap 13 mEq/L (7-15); Aspartate Amino Transferase* 30 U/L (12-35); Bilirubin Total* 0.9 mg/dL (0.1-1.5); Blood Urea Nitrogen* 19 mg/dL (7-30); Carbon Dioxide* 22 mmol/L (20-32); Glucose* 143 mg/dL (60-115); Lipase* 142 U/L (23-300)
[2023-08-28 02:55] LABS: Calcium* 9.1 mg/dL (8.4-10.6)
[2023-08-28 02:57] LABS: C Reactive Protein* 1.1 mg/dL (0.5-1.0)
[2023-08-28 03:02] LABS: Appearance Urine Cloudy (Clear); Bilirubin Urine Negative (Negative); Blood Urine 3+ (Negative); Color Urine Red (Yellow); Glucose Urine Negative (Negative); Ketones Urine 1+ (Negative); Leukocyte Esterase Urine Trace (Negative); Nitrite Urine Negative (Negative); Protein Urine 2+ (Negative); Specific Gravity Urine 1.025 (1.000-1.030); Urobilinogen Urine 0.2 (0.2-1.0); pH Urine 6.5 (5.0-8.5)
[2023-08-28] MEDS: OXYCODONE 5 MG TABLET PO (03:05)
[2023-08-28 03:08] LABS: RBC Urine >100 (0-2)
[2023-08-28 03:09] VITALS: BP 154/81; PULSE 75; RESP 16; O2SAT 96
[2023-08-28 03:09] LABS: Bacteria Urine Moderate; Squamous Epithelial Cell Urine Moderate (None-Few); WBC Urine 25-50 (0-5)
--- NOTE | 2023-08-28 04:08 | PC.NURSE ---
patient DC, states understanding to DC instructions and denies any further question. ambulatory. patient states she is going to wait for transits to open for a ride because her walked [place]. went over options for transport with patient including ambulance w/c transport and cost and patient declined. offered to allow patient to wait in her room but patient states she will wait in the lobby.
== END 2023-08-28 04:07 | disposition home or self-care (01) ==
PROVIDERS: Emergency Provider Family Medicine; PCP Family Medicine
DX: N20.1 Calculus of ureter (principal)
CPT/HCPCS: 36415; 74176; 80053; 81003; 81015; 83605; 83690; 85025; 85610; 86140; 87086; 96374; 99284; A9270; J1885

== ENCOUNTER 2024-04-27 15:41 | Outpatient (CLI) | payer MEDICARE, BC, SELFPAY ==
--- OUTSIDE RECORDS SUMMARY | 2024-04-28 01:58 | XMS_ITS | Clinical Summary ---
Author Organization [facility] Address [place], [place] [address] Care Team Providers Care Product Design Manager Name Role Phone HebertAmy Primary Care Provider Allergies Active Allergy Reactions Criticality Noted Date [...] Comment Field 07/28/2014 sneeze Cetirizine *Unknown 06/25/2012 [place] like she was swollen Medications Medication Sig [...] mcg nasal sprayIndications:E nvironmental allergies Inhale 1 [place] to both nostrils once daily. Use as [...] Description 04/24/2024 11:45 AM CDT Orders Only [facility] [address] [facility] [address] [facility] [place] [facility] 04/24/2024 Anticoagulation (warfarin) [facility] [address] [place] [address] 1, [place] [facility] Anticoagulation 04/24/2024 Travel 03/15/2024 11:15 AM CDT Orders Only [facility] [address] [facility] [address] [facility] [place] [facility] 03/15/2024 Anticoagulation (warfarin) [facility] [address] [facility] [address] 1, [place] [facility] Anticoagulation (Lab ) 03/15/2024 Travel 03/12/2024 Telephone [facility] [address] [place] [address] Amy Mclaughlin, DO Anticoagulation (Annual re-enrollment ) 02/19/2024 Orders Only [facility] [address] [place] [address] Amy Mclaughlin DO <No scans attached> 02/17/2024 Anticoagulation (warfarin) [facility] [address] [place] [address] 1, [place] [facility] Anticoagulation (OV ) 02/16/2024 3:30 PM CDT Office Visit [facility] [address] [place] [address] Amy Mclaughlin DO Medicare ANNUAL (subsequent) Visit (68 yr); Back Pain/problem 02/16/2024 3:00 PM CDT Orders Only [facility] [address] [place] [address] Lab, [place] [facility] 02/16/2024 Travel 02/06/2024 11:30 AM CDT Ancillary Procedure [address] [place] [address] 02/06/2024 Travel 02/06/[address] [place] [address] Amy Mclaughlin DO Refill Request (Potassium Chloride) [...] T Respiratory Rate 20 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% 02/16/2024 3:29 PM CDT Inhaled Oxygen Concentration - - Weight 95.3 kg (210 lb) 02/16/2024 3:29 PM CDT Height 161 cm (5' 3.39) 02/16/2024 3:29 PM CDT Body Mass Index 36.75 02/16/2024 3:29 PM CDT Plan of Treatment Upcoming Encounters Date Type Department Care Team (Late st Contact Info) Description 05/22/2024 11:45 AM CDT Orders Only [facility] [address] [place] [address] Lab, [place] [facility] Maintenance Due Date Last [...] Completed 02/06/2024 Medical Devices Implanted Type Area Hot Room Attendant Device Identifier Shelf Expiration Date Model / Serial / Lot Stent Contour [id number] - [id number] Implanted:Qty: 1 on 05/31/2008 at [facility] Right: Ureter [facility] [id number] / / NOT DOCUMENTED Stent Uret [id number] - [id number] Implanted:Qty: 1 on 08/02/2012 at [facility] Right: Ure[employer] Nafisa [id number] / / [id number] Procedures Procedure Name Priority Date/Time Associated Diagnosis [...] INR 2.4(H) <1.3 04/24/2024 11:33 AM CDT [facility] Blood BLOOD SPECIMEN / Unknown Capillary / Unknown 04/24/2024 11:29 AM CDT 04/24/2024 11:30 AM CDT Narrative [facility] - 04/24/2024 11:33 AM CDT ?Therapeutic Range 2.0-3.0 for most anticoagulated patients 2.5-3.5 or 4.0 for high risk patients Amy Mclaughlin DO LABORATORY [facility] [address] [place] [address], [place] [phone] * (ABNORMAL) LIPID PANEL W REFLEX MEASURED LDL (02/16/2024 2:33 PM CDT) [facility] [address] CHOLESTEROL,TOTAL 178 100 - 199 mg/dL 02/16/2024 9:42 PM CDT [facility] TR[facility]ATORY Comment: Cholesterol, Total Reference Ranges Desirable <200 mg/dL Borderline 200-239 mg/dL High >=240 mg/dL TRIGLYCERIDES 257(H) <150 mg/dL 02/16/2024 9:42 PM CDT [facility] HDL CHOLESTEROL 43 >40 mg/dL 9:42 PM CDT [facility] NON-HDL CHOLESTEROL 135 <145 mg/dl 02/16/2024 9:42 PM CDT [facility] CHOL/HDL RATIO 4.14 <4.50 02/16/2024 9:42 PM CDT [facility] LDL CHOLESTEROL 84 <=130 mg/dL 02/16/2024 9:42 PM CDT [facility] VLDL CHOLESTEROL 51(H) <=30 mg/dL 02/16/2024 9:42 PM CDT [facility] PROVIDER ORDERED STATUS RANDOM 02/16/2024 9:42 PM CDT [facility] Blood BLOOD SPECIMEN / Unknown Venipuncture / Unknown 02/16/2024 2:33 PM CDT 02/16/2024 2:36 PM CDT Amy Mclaughlin DO CHEMISTRY [facility] [address] [place] [id number], [place] * VITAMIN D 25 (DEFICIENCY) (02/16/2024 2:33 PM CDT) VITAMIN D TOTAL 38.7 20.0 - 80.0 ng/mL 02/19/2024 8:36 AM CDT [facility] Blood BLOOD SPECIMEN / Unknown Venipuncture / Unknown 02/16/2024 2:33 PM CDT 02/16/2024 2:[address] [facility] - 02/19/2024 8:36 AM CDT ? Vitamin D Status Deficiency: ? <20 ng/mL Insufficiency: ?20-29 ng/mL Sufficiency: ?30-80 ng/mL Possible Toxicity: ??>80 ng/mL Based on [place] [employer] recommendations Biotin supplements may cause clinically significant interference for this test assay. ??If interference is suspected, it is strongly recommended that biotin is discontinued for at least one week prior to retesting. Amy Mclaughlin DO [facility]END OUT[facility] [address] [place] [address], * (ABNORMAL) PROTIME-INR (02/16/2024 2:33 PM CDT) INR 3.3(H) <1.3 02/16/2024 9:25 PM CDT [facility] PROTIME 35.1(H) 10.3 - 12.3 sec 02/16/2024 9:25 PM CDT [facility] Blood BLOOD SPECIMEN / Unknown Venipuncture / Unknown 02/16/2024 2:33 PM CDT 02/16/2024 2:[address] [facility] - 02/16/2024 9:25 PM CDT ?Therapeutic [...] is on UFH. Amy Mclaughlin DO HEMATOLOGY [facility] [address] [place] [address], * (ABNORMAL) BASIC METABOLIC PANEL (02/16/2024 2:33 PM CDT) SODIUM 141 136 - 145 mmol/L 02/16/2024 9:42 PM CDT [facility] TR[facility] LAB[facility]ATORY POTASSIUM 3.5 3.5 - 5.1 mmol/L 02/16/2024 9:42 PM CDT [facility] CHLORIDE 101 98 - 107 mmol/L 02/16/2024 9:42 PM CDT [facility] CO2,TOTAL 28 22 - 29 mmol/L 02/16/2024 9:42 PM CDT [facility] ANION GAP 12 5 - 18 02/16/2024 9:42 PM CDT [facility] GLUCOSE 89 70 - 99 mg/dL 02/16/2024 9:42 PM CDT [facility] CALCIUM 9.1 8.8 - 10.2 mg/dL 02/16/2024 9:42 PM CDT [facility] BUN 17 8 - 23 mg/dL 02/16/2024 9:42 PM CDT [facility] CREATININE 1.07(H) 0.50 - 0.90 mg/dL 02/16/2024 9:42 PM T [facility] TR[facility] LAB[facility] BUN/CREAT RATIO 16 10 - 20 9:42 PM CDT [facility] eGFR 56(L) >90 mL/min/1.7 3m2 02/16/2024 9:42 PM CDT [facility] Comment:As of 2021, eG FR [...] 2:36 PM CDT Amy Mclaughlin DO CHEMISTRY [facility] [address] [place] [address], * (ABNORMAL) XR DXA BONE DENSITY 2 [...] recommended in 3-5 years. Lizett Membreno PA-C [facility] 02/18/2024 ?? Narrative 02/18/2024 2:20 PM CDT For Patients: Results are automatically released to your [facility] ([employer]) account once available, in compliance with federal regulations. This means that you may see your results before your provider has had a chance to review them. Please allow 2-3 business days for your provider to comment on the results. XR DXA Bone Mineral Density (BMD) EXAM LOCATION: [address] [address] PATIENT NAME: Cecilia Holley DATE OF : [...] two scanners are made by the same overhead crane operator. PROCEDURE: Dual-energy x-ray absorptiometry performed with routine [...] ve Non-Reacti ve 06/09/2015 6:44 PM CDT [facility] Blood specimen (specimen) BLOOD SPECIMEN / Unknown Venipuncture / Unknown 06/09/2015 2:20 PM CDT 06/09/2015 2:20 PM CDT Narrative [facility] - 06/09/2015 6:44 PM CDT Antibodies to HCV not detected; does not exclude the possibility of exposure to HCV. Schuyler Shell MD [facility] LABOR[facility] [address] [place] [address], from Last 3 Months or Most Recently [...] 11:01 AM 08/31/2011 2:11 PM Care Teams Product Design Manager Relationship Specialty Start Date End Date Amy Mclaughlin DO [address] [place] [address] PCP - General Family Practice 09/18/15
== END 2024-04-27 15:42 | disposition home or self-care (01) ==
LOC: AMB 04-28 01:56
PROVIDERS: PCP Family Medicine; Visit Provider Emergency Medicine
DX: R20.0 Anesthesia of skin (principal)
CPT/HCPCS: A0425; A0427

== ENCOUNTER 2024-04-27 16:08 | Emergency (ER) | payer MEDICARE, BC, SELFPAY ==
[2024-04-27 16:09] VITALS: BP 131/87; PULSE 68; RESP 18; TEMP 36.3; O2SAT 100; BMI 39.0
--- NOTE | 2024-04-27 16:24 | CRLHL7_ITS ---
For Patients: As a result of the Century Cures Act, medical imaging exams and procedure reports are released immediately into your electronic medical record. You may view this report before your referring provider. If you have questions, please contact your health care provider. INDICATION: Right flank pain. COMPARISON: 08/28/2023, 09/23/2021 TECHNIQUE: CT of the abdomen and pelvis without intravenous contrast. Please note that all CT scans at this facility use dose modulation, iterative reconstruction, and/or weight-based dosing when appropriate to reduce radiation dose to as low as reasonably achievable. FINDINGS: The study is performed without intravenous contrast. This limits the sensitivity of the exam for the detection bowel pathology, focal lesions of the abdominopelvic viscera and vascular pathology including significant vascular stenosis, occlusion and dissection. ABDOMEN Liver: Normal hepatic attenuation. No suspicious focal hepatic lesion. No intrahepatic biliary ductal dilatation. Gallbladder: Normal gallbladder size. Normal common duct caliber. No pericholecystic inflammatory changes. Pancreas: Normal pancreatic attenuation. No focal lesion. Normal duct caliber. No peripancreatic inflammatory changes. Spleen: Normal splenic attenuation. No suspicious focal lesion. Accessory splenules. Adrenal Glands: Symmetrical adrenal glands. No focal lesion of significance. Kidneys: 9 mm right ureteral stone at the level of the pelvic inlet with associated moderate upstream right hydroureteronephrosis, right renal edema and perinephric stranding consistent with obstructive uropathy. No suspicious focal lesion. Gastrointestinal tract: Normal caliber, attenuation and wall thickness of the gastrointestinal tract. Diverticulosis without associated inflammatory changes. Normal mesentery. Unidentified appendix. No sign of appendicitis. Vascular: Normal outer wall to outer wall abdominal aortic caliber. Patency and luminal caliber of the abdominopelvic arterial and venous vasculature cannot be assessed on this noncontrast study. Additional findings: No incidental adenopathy. No significant ascites, free fluid or pneumoperitoneum. PELVIS No bladder lesion is identified. No significant incidental findings related to the uterus and uterine adnexae. No abnormal free fluid. No incidental adenopathy. SKELETON AND BODY WALL No acute or suspicious incidental findings. LOWER THORAX Stable incidental noncalcified 7 mm solid right lower lobe nodule, unchanged since 09/23/2021 and therefore considered benign. Chronic left basilar scar. Unchanged leftward shift of the mediastinum. Small pericardial effusion. IMPRESSION: 9 mm right ureteral stone at the level of the pelvic inlet with associated moderate upstream right hydroureteronephrosis, right renal edema and perinephric stranding consistent with obstructive uropathy. Please note that all CT scans at this facility use dose modulation, iterative reconstruction, and/or weight-based dosing when appropriate to reduce radiation dose to as low as reasonably achievable. Dictated by Jarad Asher MD @ 04/27/2024 5:54:06 PM (Electronically Signed)
--- NOTE | 2024-04-27 16:26 | ED.ABDPAIN ---
HPI - Abdominal Pain General Chief Complaint: Abdominal Pain Stated Complaint: ambulance Time Seen by Provider: 04/27/24 16:10 History of Present Illness HPI narrative: This 68-year-old female comes in by ambulance because of right lower quadrant abdominal pain and flank pain that began several hours ago. She has a history of kidney stones and feels that she is passing another stone. She did take a Flomax tablet earlier. She is on warfarin. She does not report any dysuria symptoms. She states that she had some tingling on the left side of her face that crossed over also onto the right side of her face but now is resolved. She does not report any other altered sensations and does not have any unilateral weakness. Related Data Home Medications ?Medication ?Instructions ?Recorded ?Confirmed amlodipine 5 mg tablet 5 mg PO DAILY 06/05/22 04/27/24 atenolol 50 mg tablet 50 mg PO DAILY 06/05/22 04/27/24 hydrochlorothiazide 25 mg tablet 25 mg PO DAILY 06/05/22 04/27/24 lisinopril 40 mg tablet 40 mg PO DAILY 06/05/22 04/27/24 potassium chloride 20 mEq 20 meq PO BID 06/05/22 04/27/24 tablet,extended release(part/cryst) warfarin 1 mg tablet 1 mg PO .COMPLEX 06/05/22 04/27/24 Previous Rx's ?Medication ?Instructions ?Recorded oxycodone 5 mg tablet 5 mg PO Q8H PRN pain #8 tabs 08/28/23 oxycodone 5 mg capsule 5 mg PO Q6H PRN pain #15 caps 04/27/24 Allergies Allergy/AdvReac Type Severity Reaction Status Date / Time iodine Allergy Severe Verified 04/27/24 16:16 Review of Systems Status of ROS Reports: 10 or more systems reviewed and unremarkable except as noted in History and below Narrative Constitutional: No fevers, no weight gain or loss. Eyes: No discharge. No vision changes. HENT: No congestion, no sore throat, no ear pain. Cardiovascular: No chest pain, no palpitations. Respiratory: No shortness of breath, no wheezes, no cough. Gastrointestinal: Nodiarrhea. Right flank pain and right lower quadrant abdominal pain. Nausea with vomiting. Genitourinary: No dysuria, no hematuria. Musculoskeletal: Normal range of motion. Skin: No rashes, no pruritis. Neurological: No dizziness, weakness, sensory change, speech change. Endo/Heme/Allergies: No bruising or bleeding. No polydipsia. Pysch: no suicidality, no anxiety, no insomnia. All other systems reviewed and are negative. 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 - Malignant carcinoid tumor of the bronchus and lung (ICD-10) Hypertriglyceridemia ?E78.1 - Pure hyperglyceridemia (ICD-10) Liver lesion ?K76.9 - Liver disease, unspecified (ICD-10) Renal stone ?N20.0 - Calculus of kidney (ICD-10) Pulmonary embolism on right ?I26.99 - Other pulmonary embolism without acute cor pulmonale (ICD-10) Carcinoid tumor of lung ?D3A.090 - Benign carcinoid tumor of the bronchus and lung (ICD-10) Nephrolithiasis ?N20.0 - Calculus of kidney (ICD-10) Asthma ?J45.909 - Unspecified asthma, uncomplicated (ICD-10) Essential hypertension ?I10 - Essential (primary) hypertension (ICD-10) Surgical History No significant past surgical history Social History Smoking Status: Never smoker Do you use any of these nicotine containing products: None How often do you have a drink containing alcohol: never How often do you have six or more drinks on one occasion: Never AUDIT-C Alcohol total score: 0 Non-prescribed substance use: denies use Exam Narrative: Exam Narrative: Constitutional: Well-developed, well-nourished, no acute distress. HEENT: Normocephalic, atraumatic. Neck: Normal range of motion. Nontender. Supple. Heart: Regular. No murmurs. Normal rate. Intact distal pulses. Lungs: Clear to auscultation. No chest discomfort. No wheezes, rhonchi, or rales. Abdomen: Normal bowel sounds. Diffuse right lower quadrant tenderness. No rebound tenderness. Genitalia: Deferred. Back: No midline tenderness. Normal range of motion. Extremities: Normal range of motion. No injury. Skin: Intact. No rash. Warm. No erythema or pallor. Neurologic: No altered sensation. No weakness. Alert and oriented. No facial asymmetry. Tongue is midline. [id number] is normal. No pronator drift. [employer] strength is equal bilaterally. Able to raise each leg from the bed. Psychiatric: No suicidality. No anxiety or depression. No insomnia. Nursing notes and vitals signs are reviewed. Const: Vital Signs, click to edit/add: Vital Signs - 24 hr 04/27/24 16:09 04/27/24 18:00 Temperature 97.3 F L 98.4 F Pulse Rate [Right Pulse Oximeter] 68 75 Respiratory Rate 18 21 Blood Pressure [Ri ght Upper Arm] 131/87 120/66 Pulse Oximetry 100 88 Oxygen Delivery Me thod Room Air Room Air Course Vital Signs Vital signs: Initial Vital Signs Temperature 97.3 F L 04/27/24 16:09 Temperature Source Temporal Artery Scan 04/27/24 16:09 Pulse Rate 68 04/27/24 16:09 Respiratory Rate 18 04/27/24 16:09 Blood Pressure 131/87 04/27/24 16:09 Blood Pressure Mean 101 04/27/24 16:09 Blood Pressure Position Sitting 04/27/24 16:09 Pulse Oximetry 100 04/27/24 16:09 Oxygen Delivery Method Room Air 04/27/24 16:09 Vital Signs Temperature 97.3 F L 04/27/24 16:09 Pulse Rate 68 04/27/24 16:09 Respiratory Rate 18 04/27/24 16:09 Blood Pressure 131/87 04/27/24 16:09 Pulse Oximetry 100 04/27/24 16:09 Oxygen Delivery Method Room Air 04/27/24 16:09 Temperature 98.4 F 04/27/24 18:00 Pulse Rate 75 04/27/24 18:00 Respiratory Rate 21 04/27/24 18:00 Blood Pressure 120/66 04/27/24 18:00 Pulse Oximetry 88 04/27/24 18:00 Oxygen Delivery Method Room Air 04/27/24 18:00 Medications Administered Medications: Discontinued Medications Generic Name Dose Route Start Last Admin Trade Name Freq PRN Reason Stop Dose Admin Doxycycline Hyclate 100 mg 07/20/24 17:42 04/27/24 17:57 Doxycycline Hyclate 100 Mg PO 04/27/24 17:43 Not Given ONCE ONE Hydromorphone HCl 0.5 mg 04/27/24 16:23 04/27/24 16:35 Hydromorphone 0.5 Mg/0.5 Ml Inj IVP 04/27/24 16:24 0.5 mg ONCE ONE Administration Ondansetron HCl 4 mg 04/27/24 16:23 04/27/24 16:36 Ondansetron 2 Mg/Ml Inj IVP 04/27/24 16:24 4 mg ONCE ONE Administration MDM - Abdominal Pain MDM Narrative Medical decision making narrative: This 68-year-old female comes in with symptoms typical of a kidney stone. An IV was established where she received Dilaudid 0.5 mg and Zofran 4 mg. This brought sufficient relief to her pain. CT imaging does show a 9 mm stone in the right mid ureter. Urinalysis is not showing any sign of infection or other complication. This patient is on Coumadin and will need to stop that medicine temporarily in order to have intervention from Urology as the size of the stone is not likely to pass without assistance from a urologist. I did speak with the urologist on-call in the [employer] system and the [place] [facility] group will reach out to her for a follow-up appointment to attend to this stone. The patient is okay to be discharged home and instructed to discontinue Coumadin. If pain is worse she knows where she can follow up where Urology services are available. Lab Data Labs: Lab Results 04/27/24 Range/Units 16:58 Urine Color Red A (Yellow) Urine Appearance Cloudy A (Clear) Urine pH 7.5 (5.0-8.5) Ur Specific [place] 1.025 (1.000-1.030) Urine Protein 2+ A (Negative) Urine Glucose (UA) Negative (Negative) Urine Ketones 2+ A (Negative) Urine Blood 3+ A (Negative) Urine Nitrite Negative (Negative) Urine Bilirubin Negative (Negative) Urine Urobilinogen 0.2 (0.2-1.0) Ur Leukocyte Esterase Negative (Negative) Urine RBC >100 A (0-2) Urine WBC 0-2 (0-5) Ur Squamous Epith Cells None (None-Few) Urine Bacteria None (None) Imaging Data CT scan - abdomen: Radiologist's impression: 9 mm right ureteral stone at the level of the pelvic inlet with associated moderate upstream right hydroureteronephrosis, right renal edema and perinephric stranding consistent with obstructive uropathy. Please note that all CT scans at this facility use dose modulation, iterative reconstruction, and/or weight-based dosing when appropriate to reduce radiation dose to as low as reasonably achievable. Discharge Plan Discharge Clinical Impression: Calculus, ureteral Patient Disposition: Home w/ Parent or Adult Condition: Stable Additional Instructions: Take medication as needed and directed for pain and nausea. Someone from [facility] will call to arrange follow-up appointment to attend to the stone in the right ureter. The phone number for [facility] is [phone] if you need to contact them for any reason. Prescriptions: New oxycodone 5 mg capsule 5 mg PO Q6H PRN (Reason: pain) Qty: 15 0RF No Action oxycodone 5 mg tablet 5 mg PO Q8H PRN (Reason: pain) Qty: 8 0RF amlodipine 5 mg tablet 5 mg PO DAILY atenolol 50 mg tablet 50 mg PO DAILY hydrochlorothiazide 25 mg tablet 25 mg PO DAILY lisinopril 40 mg tablet 40 mg PO DAILY potassium chloride 20 mEq tablet,ER particles/crystals 20 meq PO BID warfarin 1 mg tablet 1 mg PO .COMPLEX Patient Comments: take by mouth 2mg every Mon, , ; 1mg all other days Rx Instructions: 1 mg orally; Follow Up/Referrals: Amy Mclaughlin DO [Primary Care Provider] - Stand Alone Forms: Web[employer] Info Instructions
[2024-04-27] MEDS: HYDROmorphone 0.5 mg/0.5 ml inj IVP (16:35)
[2024-04-27] MEDS: ONDANSETRON 2 MG/ML inj 4 MG IVP (16:36)
--- OUTSIDE RECORDS SUMMARY | 2024-04-27 16:41 | XMS_ITS | Data Portability ---
Author Organization [place] [facility], [facility] Address [address] [place] [address] Care Team Providers Care Lan Analyst Name Role Phone ASHLEE MCLEAN Primary Care Provider Assessment Encounter Date Assessment Date Assessment LastModified by Organization Details LastModified Time 08/30/2023 08/30/2023 67F with 1 cm distal right ureteral stone and multiple other urinary tract stones. Given size of stone, we discussed very low likelihood of passage without surgical intervention. She is also not tolerating oral intake at this point, and oral pain medications are no longer relieving her pain. We discussed it is recommended for her to present to [facility] today for more urgent surgical intervention. We discussed this will likely include ureteroscopy and ureteral stent placement and may also require laser lithotripsy at the same time (though surgeon may determine to do laser lithotripsy in 2-3 weeks as staged procedure). She was advised to remain NPO until seen by the urology team at [facility] MD and PA team were notified. 1. 1 cm distal right ureteral stone, 2 adjacent right ureteral stones (3 mm) - reviewed outside CT scan, labs, ED notes - discussion with patient as outlined above - recommended going directly to [facility] ER now - advised her to remain NPO for likely surgery for now - notified Dr. Yo/Latoya Brown PA-C who are covering [facility] for the group today 2. Punctate right renal stones - monitor for now - stone prevention diet - recommend KUB 1 year - would benefit from metabolic stone work-up in future as above Not available 08/30/2023 10:27:20 Plan of Treatment Reminders Order Date Submit Date Provider Last Modified By Organization Details Last Modified Time Details Appointments None record ed. Lab None record ed. Referral None record ed. Procedures None record ed. Surgeries None record ed. Imaging None record ed. Medication Orders None record ed. Patient TargetsNo targets recorded. Patient InstructionsNo instructions recorded. Reason for Referral None Reported. Results Created Date Observation Date Name Description Value Unit Range Abnormal Flag LastModifiedBy Organization Detail LastModifiedTime 08/29/2008/28/2023 CT, abdom en + pelvi s, w/o contr ast No observ ation record ed. [email or web address] Not Available 08/29/2023 14:02:04 09/11/2009/08/2023 imagi ng/di agnos tic resul t No observ ation record ed. [email or web address] Not Available 09/11/2023 12:26:53 Result Notes None recorded. Problems Name Status Onset Date Resolution Date Notes Provider Name and Address Organization Details Recorded Time Ureteric stone Active 3 Antonia Chaney PA-C [address] [place] [address],[address], [address] [place] [address], [facility] 08/29/2023 21:32:37 Kidney stone Active 3 Antonia Cahney PA-C [address] [place] [address],[address], [address], [facility] 08/29/2023 21:32:40 Problem Notes None recorded. Procedures Surgical History None recorded. Imaging Results Imaging Date Name Status LastModified by Organiz ation Details LastModified Time 08/28/2023 CT, abdomen + pelvis, w/o contrast completed [email or web address] Information not available 08/29/2023 14:02:04 09/08/2023 imaging/diagn ostic result completed [email or web address] Information not available 09/11/2023 12:26:53 Procedure Notes None recorded. Medical Equipment None Reported. Allergies Allergen ID Allergen Name Allergen Category Reaction Reaction Severity Criticality Documentation Date Start Date Code Code System Note Provider Name and Address Organization Details Recorded Time [id number] Iodinated contrast media (substanc e) medicatio n hives Not available Not available 08/30/2023 96835 2003 SNOMED Radha Deal [facility] 3 09:35:13 Medications Name Sig Start Date Stop Date Status Note LastModified by Organization Details LastModified Time amlodipine 5 mg tablet active Not Available Not Available Not Available potassium chloride ER 20 mEq tablet,extended release(part/cryst) active Not Available Not Av ailable Not Available tamsulosin 0.4 mg capsule active Not Available Not Available Not Available hydrochlorothiazide 25 mg tablet active Not Available Not Available Not Available warfarin 1 mg tablet active Not Available Not Available Not Available estradiol 0.01% (0.1 mg/gram) vaginal cream active Not Available Not Availabl e Not Available lisinopril 40 mg tablet active Not Available Not Available Not Available atenolol 50 mg tablet active Not Available Not Available Not Available oxycodone 5 mg tablet active Not Available Not Available Not Available GaviLyte-G 236 gram-22.74 gram-6.74 gram-5.86 gram oral solution active Not Available Not Starr ilable Not Available Vitals Date Recorded Body height Body mass index (BMI) Body weight Provider Name and Address Organization Details Last Updated DateTime 08/30/2023 162.56 cm 36.7 kg/m2 42786.77 g Radha Deal [facility] 08/30/2023 09:34:28 Social History Question Answer Notes LastModified by Organizat ion Details LastModified Time Tobacco Smoking Status Never Smoker Radha Deal [facility] 08/30/2023 09:35:34 What Is Your Level Of Alcohol Consumption? None [email or web address] Information not available 08/30/2023 What Was The Date Of Your Most Recent Tobacco Screening? 08/30/2023 [email or web address] Information not available 08/30/2023 Sex: Unknown Functional Status None recorded. Mental Status None recorded. Family History Nothing Reported. Medical History Condition Response High Blood Pressure Y Kidney Stones Y High Cholesterol N Gynecological HistoryNo gynecological history recorded. Obstetrics History GPAL:G 0 P 0 0 0 0 Immunizations Vaccine Type Date Status Provider Name and Address Organization Details Recorded Time COVID-19, mRNA, LNP-S, PF, 100 mcg/0.5mL dose or 50 mcg/0.25mL dose [facility]10/[facility] 09:34:32 COVID-19, mRNA, LNP-S, PF, 100 mcg/0.5mL dose or 50 mcg/0.25mL dose 01/07/2021 john foster, [facility] 08/30/2023 09:34:32 COVID-19, mRNA, LNP-S, PF, 100 mcg/0.5mL dose or 50 mcg/0.25mL dose 01/26/2022 completed Radha Deal null, [facility] 08/30/2023 09:34:32 COVID-19, mRNA, LNP-S, PF, 100 mcg/0.5mL dose or 50 mcg/0.25mL dose 08/04/2021 completed Radha Deal null, [facility] 08/30/2023 09:34:32 COVID-19, mRNA, LNP-S, bivalent, PF, 50 mcg/0.5 mL or 25mcg/0.25 mL dose 02/06/2023 completed Radha Deal null, [facility] 08/30/2023 09:34:32 COVID-19, mRNA, LNP-S, bivalent, PF, 50 mcg/0.5 mL or 25mcg/0.25 mL dose 06/22/2022 [facility] 08/30/2023 09:34:32 COVID-19, mRNA, LNP-S, PF, 50 mcg/0.5 mL 07/27/2023 [facility] 08/30/2023 09:34:32 pneumococcal polysaccharide PPV23 06/03/2020 completed Radha Deal [facility] 08/30/2023 09:34:32 pneumococcal polysaccharide PPV23 08/28/2011 [facility]23 09:34:32 Tdap 04/16/2014 [facility] 08/30/2023 09:34:32 Pneumococcal conjugate PCV 13 01/23/2023 [facility] 09:34:32 Influenza, split virus, trivalent, PF 08/28/2011 completed Radha Deal [facility] 08/30/2023 09:34:32 Td (adult), 5 Lf tetanus toxoid, preservative free, adsorbed 06/10/2005 completed SEMAJ Neri - [facility] 08/30/2023 09:34:32 Past Encounters Encounter ID Performer Location Encounter Start Date Encounter Closed Date Diagnosis/Indication Diagnosis SNOMED-CT Code [id number] Antonia Chaney PA-C [facility] [address] [place] [id number] 08/30/2023 08:27:04 09/04/2023 13:42:00 Ureteric stone 81456591 Kidney stone 69616843 Health Concerns Section Related Observation LastModified by Organization Detai ls LastModified Time None Recorded Concern Status LastModified by Organization Details LastModified Time None Recorded Advance Directives Directive None Recorded Payers Encounter Date Sequence Insurance Name Policy Number Policy Franco Covered Member ID Franco Member ID Guarantor Name 08/30/2023 1 [employer] [employer] - MEDICARE COST [id number] Cecilia Holley [id number] Cecilia Holley Notes Date Note Type Note Provider Name and Address Organization Details Recorded Time 08/30/2023 text/html HPI Notes: 67F with 1 cm distal right ureteral stone and additional ureteral & renal stones. She was seen at [facility] on 08/28 for RLQ abdominal pain x2 hours. Was not having N/V at the time. [place] similar to prior kidney stone episode (required ureteral stent placement about 10 years ago per her report). CT demonstrated 10 mm distal right ureteral stone with two adjacent stones (3 mm) and additional small renal stones. Was discharged home with tamsulosin and pain medication. Was scheduled to see Dr. Shannon in [place] yesterday for urologic consult, but states she got lost and ran into traffic on the way. This morning, has been vomiting in the clinic restroom. States she continues to have severe RLQ abdominal pain with minimal relief from her oxycodone. Ate a piece of toast yesterday morning, but otherwise has not tolerated oral intake since Monday 08/27. She denies fever, chills, gross hematuria or dysuria. UA - unable to leave sample today Labs: Imaging: (reviewed) 08/28/23 CT A/P non-con: 10 mm distal right ureteral stone with 2 adjacent right ureteral stones measuring 3 mm; moderate right hydro; at least 4 punctate right renal stones; no left renal or ureteral stones PMH: lung cancer, kidney stones, HTN, PE (on coumadin) PSH: partial left lung resection 2005 & 2010 Soc: Occ: Tobacco: non-smoker EtOH: Antonia Chaney PA-C [address], [place], [address], [facility] 08/30/2023 10:27:28 OBGyn Episode No OBEpisode recorded.
--- OUTSIDE RECORDS SUMMARY | 2024-04-27 16:41 | XMS_ITS | Clinical Summary ---
Author Organization [employer] [facility] Address [place], [place] [address] Care Team Providers Care Fraud Investigator Name Role Phone HebertAmy Primary Care Provider [phone] Allergies Active Allergy Reactions Criticality Noted Date Comments Influenza Virus Vaccines Rash 08/02/2012 Iodinated Contrast Media Hives,Cough Low 10/17/2007 PT is to premedicate with Methylprednisolone/Be nadryl before CT and get NONIONIC contrast. Iodine Rash 09/29/2020 Mold Extracts Other - Describe In Comment Field 07/28/2014 sneeze Ondansetron Itching Low 11/09/2007 Perfume Other - Describe In Comment Field 09/12/2015 Sneezing Pollen Extracts Other - Describe In Comment Field 07/28/2014 sneeze Cetirizine *Unknown 06/25/2012 [place] like she was swollen Medications Medication Sig Dispensed Refills Start Date End Date Status acetaminophen (TYLENOL) 325 mg tablet Take 325-650 mg by mouth every 4 hours if needed. Max acetaminophen dose: 4000mg in 24 hrs. Active cholecalciferol, Vitamin D3, 2,000 unit tablet Take 1 tablet by mouth once daily. 0 04/09/2014 Active triamcinolone, 55 mcg each actuation, nasal (NASACORT AQ) 55 mcg nasal sprayIndications:E nvironmental allergies Inhale 1 [place] to both nostrils once daily. Use as needed 16.5 mL 4 06/07/2023 Active Premarin 0.625 mg/gram vaginal creamIndications:P ost-menopausal atrophic vaginitis APPLY 1/4 (ONE-QUARTER) TO 1/2 (ONE-HALF) INCH RIBBON OF CREAM TO OUTER VAGINAL AREA ONCE WEEKLY DIRECTED 30 g 08/12/2023 Active estradioL (ESTRACE) 0.01% (0.1 mg/g) vaginal creamIndications:P ost-menopausal atrophic vaginitis Apply a small amount of cream to vaginal tissues nightly. 42.5 g 3 08/15/2023 Active albuterol HFA (Ventolin HFA) 90 mcg/actuation inhaler Inhale 2 Puffs by mouth every 6 hours if needed. Active sennosides (Senna) 8.6 mg tablet Take 8.6 mg by mouth 2 times daily if needed for Constipation. Active triamcinolone 0.1% TOPICAL (KENALOG) 0.1 % lotion Apply topically to affected area(s) 2 times daily if needed. Active amLODIPine (NORVASC) 5 mg tabletIndications: Essential hypertension Take 1 Tablet (5 mg) by mouth once daily. 90 Tablet 3 02/16/2024 Active atenoloL (TENORMIN) 50 mg tabletIndications: Essential hypertension Take 1 Tablet (50 mg) by mouth once daily. 90 Tablet 3 02/16/2024 Active hydroCHLOROthiazid e 25 mg tabletIndications: Essential hypertension Take 1 Tablet (25 mg) by mouth once daily. 90 Tablet 3 02/16/2024 Active lisinopriL (PRINIVIL; ZESTRIL) 40 mg tabletIndications: Essential hypertension Take 1 Tablet (40 mg) by mouth once daily. 90 Tablet 3 02/16/2024 Active potassium chloride (KLOR-CON M20) 20 mEq extended-release tablet (part/cryst)Indica tions:Essential hypertension Take 1 Tablet (20 mEq) by mouth two times daily with meals. 180 Tablet 3 02/16/2024 Active warfarin (COUMADIN) 1 mg tabletIndications: Pulmonary embolism on right (HC),Anticoagulati on monitoring, INR range 2-3 Take by mouth 1 mg (1 mg x 1) every Tue, Fri; 1.5 mg (1 mg x 1.5) all other days or as directed 125 Tablet 1 02/16/2024 Active Active Problems Problem Noted Date Diagnosed Date Ureterolithiasis 08/30/2023 Acute kidney injury 08/30/2023 Hypertriglyceridemia 08/30/2017 Contrast media allergy 05/19/2015 Anticoagulation monitoring, INR range 2-3 2013 Renal stone 07/31/2012 Liver lesion 07/31/2012 Overview: -- Incidental finding of liver lesion on CT study obtained on 07/31/2012: linear areas of decreased density in the liver ACP (advance care planning) 09/05/2011 Overview: 1. Healthcare Directive: Full code 2. Documentation: Discussed with patient who is competent to make decision 3. 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 -- Recurrence noted in the LLL in 2010. Thoracotomy with wedge resection of LLL on 08/28/[address] Araujo. -- Has a stable mass in the RLL which is being followed. Nephrolithiasis 01/31/2011 Overview: Uric acid stones Unspecified asthma(493.90) 12/17/2008 Overview: Uses albuterol HFA as needed. Rarely uses. Routine General Medical Exam ination at a Health Care Facility 12/17/2008 Overview: Colonoscopy 2007, normal. Repeat 10 years Sensorineural hearing loss, bilateral 05/02/2008 Unspecified essential hypertension 08/07/2006 Overview: Well controlled on atenolol & HCTZ. 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 NO new symptoms. Patient previously declined further treatment then. Amy Mclaughlin D.O. 01/25/2023 6:11 PM Hydronephrosis 07/31/2012 01/09/2015 DICK (acute kidney injury) 07/31/2012 Ileus, postoperative 08/29/2011 011 Overview: N+V, quiet bowel sounds---> NPO status with IV fluid repletion. S/P thoracotomy 08/26/2011 09/03/2011 Overview: 08/26/11: S/p RE-DO LEFT THORACOTOMY; LEFT LOWER LOBE WEDGE RESECTION by Dr. Araujo. 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 Left thoracotomy, Left upper lobectomy Encounters Date Type Department Care Team Description 04/24/2024 11:45 AM CDT Orders Only [facility] [address] [facility] [address] [facility] [place] [facility] 04/24/2024 Anticoagulation (warfarin) [facility] [address] [place] [address] 1, [place] Anticoagulation 04/24/2024 Travel 03/15/2024 11:15 AM CDT Orders Only [facility] [address] [facility] [address] [facility] [place] [facility] 03/15/2024 Anticoagulation (warfarin) [facility] [address] [facility] [address] 1, [place] [facility] Anticoagulation (Lab ) 03/15/2024 Travel 03/12/2024 Telephone [facility] [address] [place] [address] Amy Mclaughlin, DO Anticoagulation (Annual re-enrollment ) 02/19/2024 Orders Only [facility] [address] [place] [address] Amy Mclaughlin DO <No scans attached> 02/17/2024 Anticoagulation (warfarin) [facility] [address] [place] [address] 1, [place] Anticoagulation (OV ) 02/16/2024 3:30 PM CDT Office Visit [facility] [address] [place] [address] Amy Mclaughlin DO Medicare ANNUAL (subsequent) Visit (68 yr); Back Pain/problem 02/16/2024 3:00 PM CDT Orders Only [facility] [place] [address] Lab[facility] [place] [facility] 02/16/2024 Travel 02/06/2024 11:30 AM CDT Ancillary Procedure [address] [place] [address] 02/06/2024 Travel 02/06/[address] [place] [address] Amy Mclaughlin DO Refill Request (Potassium Chloride) from Last 3 Months Immunizations Name Administration Dates Next Due Influenza, IIV3 (Age 6-35 mos) 08/28/2011 Influenza, IIV3 (Age >=3 years) 08/28/2011 Pneumococcal Poly,23-Valent (Pneumovax) 06/03/20 20,08/28/2011 Pneumococcal conj 13-Valent (Prevnar 13) 023 Td (Age >=7 Years) 06/10/2005 Tdap 04/16/2014 Family History Medical History Relation Name Comments Heart Disease Brother Other Father Alzheimer Hypertension Mother Other Mother Arteriolosclero sis Other Sister 1 MS Other Sister 2 memory issues Cancer-breast No Family History Cancer-colon No Family History Cancer-ovarian No Family History Cancer-pancreatic No Family History Cancer-prostate No Family History Melanoma No Family History Relation Name Status Comments Brother Alive Father (Age 73) alzheimers Mother (Age 44) kidney pro blems Sister 1 Alive Sister 2 Social History Tobacco Use Types Packs/Day Years Used Date Smoking Tobacco: Never Smokeless Tobacco: Never Tobacco Cessation:Counseling Given: Yes Alcohol Use Standard Drinks/Week Comments No 0 (1 standard drink = 0.6 oz pur e alcohol) PHQ-2 Answer Date Recorded PHQ-2 TOTAL SCORE 0 02/16/2024 Social Connections Answer Date Recorded Frequency of Communication with Friends and Fami ly Not on file 02/09/2023 Financial Resource Strain Answer Date R ecorded Difficulty of Paying Living Expenses 3 02/07/2022 Difficulty of Paying Living Expenses Not on file 02/07/2022 Food Insecurity Answer Date Recorded Worried About Running Out of Food in the Last Ye ar 1 02/07/2022 Transportation Needs Answer Date Record ed Lack of Transportation (Medical) 1 02/07/2022 Housing Stability Answer Date Recorded Unable to Pay for Housing in the Last Year 1 02/07/2022 Sex and Gender Information Value Date Recorded Sex Assigned at Not on file Gender Identity Not on file Sexual Orientation Not on file Obstetrics History Para Term AB IAB SAB Ectopic Multiple Livin g Live Births 4 4 4 Date Outcome GA Total Labor Labor/2nd/3rd Weight Sex Type Anes PTL Janene A1 A5 Name Clin Para Para Para Para Last Filed Vital Signs Vital Sign Reading Time Taken Comments Blood Pressure 122/76 02/16/2024 3:29 PM CDT Pulse 67 02/16/2024 3:29 PM CDT Temperature 36.8 ??C (98.3 ??F) 02/16/2024 3:29 PM CD T Respiratory Rate 20 09/02/2023 8:[address] CUTTER Oxygen Saturation 97% 02/16/2024 3:29 PM CDT Inhaled Oxygen Concentration - - Weight 95.3 kg (210 lb) 02/16/2024 3:29 PM CDT Height 161 cm (5' 3.39) 02/16/2024 3:29 PM CDT Body Mass Index 36.75 02/16/2024 3:29 PM CDT Plan of Treatment Upcoming Encounters Date Type Department Care Team (Late st Contact Info) Description 05/22/2024 11:45 AM CDT Orders Only [facility] [address] [place] [address] Lab, [place] Health Maintenance Due Date Last Done Comments Zoster (shingles) series for age 50+ (1 of 2) 2004 Mammogram for age 45-75 01/07/2023 01/08/20, 08/30/2017, 07/13/2016, Additional history exists COVID-19 vaccine series ( season) 2023 07/27/2023, 02/06/2023, 06/22/2022, Additional history exists Tetanus booster 04/16/2024 04/16/2014, 06/10/2005 BMI (ht and wt on same day) for age 18+ 02/15/2025 02/16/2024, 09/04/2023, 01/23/2023, Additional history exists Medicare Wellness for age 65+ 02/16/2025, 01/23/2023, 12/03/2021, Additional history exists Depression screening for age 12+ 02/18/2025 02/19/2024, 02/17/2024, 02/16/2024, Additional history exists Lipids for age 45-75 02/15/2029 02/16/2024, 01/23/2023, 12/03/2021, Additional history exists Colonoscopy through age 75 06/19/203306/19, 06/19/2023, 01/04/2008 Tdap Completed 04/16/2014 Hepatitis C screening for ag e 18-79 Completed 06/09/2015 Pneumococcal series for age 65+ Completed 01/23/2023, 06/03/2020, 08/28/2011 DEXA/DXA scan for age 65+ Completed 02/06/2024 Medical Devices Implanted Type Area Chemist Helper Device Identifier Shelf Expiration Date Model / Serial / Lot Stent Contour [id number] - [id number] Implanted:Qty: 1 on 05/31/2008 at [facility] Right: Ureter [facility] [id number] / / NOT DOCUMENTED Stent Uret [id number] - [id number] Implanted:Qty: 1 on 08/02/2012 at [facility] Right: Ureter [employer] Nafisa [id number] / / [id number] Procedures Procedure Name Priority Date/Time Associated Diagnosis Comments INR,POCT Routine 04/24/2024 11:29 AM CDT Pulmonary embolism on right (HC) Anticoagulation monitoring, INR range 2-3 INR,POCT Routine 03/15/2024 11:30 AM CDT Pulmonary embolism on right (HC) Anticoagulation monitoring, INR range 2-3 VITAMIN D 25 (DEFICIENCY) Add On 02/16/2024 2:33 PM CDT Osteopenia, unspecified location LIPID PANEL W REFLEX MEASURED LDL Routine 02/16/2024 2:33 PM CDT Hypertriglyceridemia BASIC METABOLIC PANEL Routine 02/16/2024 2:33 PM CDT Unspecified essential hypertension PROTIME-INR STAT 02/16/2024 2:33 PM CDT Anticoagulation monitoring, INR range 2-3 XR DXA BONE DENSITY 2 SITES AXIAL Routine 02/06/2024 11:45 AM CDT Post-menopausal COLONOSCOPY SCREENING Routine 06/19/2023 12:00 AM CDT Screening for colon cancer XR MAMMO BILAT SCREENING Routine 01/07/2022 1:48 PM CDT Visit for screening mammogram ANTI HCV Routine 06/09/2015 2:20 PM CDT Carcinoid tumor of lung, left from Last 3 Months or Most Recently Relevant to Health Maintenance Results * (ABNORMAL) INR,POCT (04/24/2024 11:29 AM CDT) Only the most recent of2 resultswithin the time period is included. INR 2.4(H) <1.3 04/24/2024 11:33 AM CDT [facility] Blood BLOOD SPECIMEN / Unknown Capillary / Unknown 04/24/2024 11:29 AM CDT 04/24/2024 11:30 AM CDT Narrative [facility] - 04/24/2024 11:33 AM CDT ?Therapeutic Range 2.0-3.0 for most anticoagulated patients 2.5-3.5 or 4.0 for high risk patients Amy Mclaughlin DO LABORATORY [facility] [address] [place] [address], [place] [phone] * (ABNORMAL) LIPID PANEL W REFLEX MEASURED LDL (02/16/2024 2:33 PM CDT) [facility] CHOLESTEROL,TOTAL 178 100 - 199 mg/dL 02/16/2024 9:42 PM CDT [facility] Comment: Cholesterol, Total Reference Ranges Desirable <200 mg/dL Borderline 200-239 mg/dL High >=240 mg/dL TRIGLYCERIDES 257(H) <150 mg/dL 02/16/2024 9:42 PM CDT [facility] HDL CHOLESTEROL 43 >40 mg/dL 9:42 PM CDT [facility] NON-HDL CHOLESTEROL 135 <145 mg/dl 02/16/2024 9:42 PM CDT [facility] CHOL/HDL RATIO 4.14 <4.50 02/16/2024 9:42 PM CDT [facility] LDL CHOLESTEROL 84 <=130 mg/dL 02/16/2024 9:42 PM CDT [facility] VLDL CHOLESTEROL 51(H) <=30 mg/dL 02/16/2024 9:42 PM CDT [facility] PROVIDER ORDERED STATUS RANDOM 02/16/2024 9:42 PM CDT [facility] Blood BLOOD SPECIMEN / Unknown Venipuncture / Unknown 02/16/2024 2:33 PM CDT 02/16/2024 2:36 PM CDT Amy Mclaughlin DO CHEMISTRY [facility] [address] [place] [address], [place] * VITAMIN D 25 (DEFICIENCY) (02/16/2024 2:33 PM CDT) VITAMIN D TOTAL 38.7 20.0 - 80.0 ng/mL 02/19/2024 8:36 AM CDT [facility] Blood BLOOD SPECIMEN / Unknown Venipuncture / Unknown 02/16/2024 2:33 PM CDT 02/16/2024 2:36 PM CDT [facility] - 02/19/2024 8:36 AM CDT ? Vitamin D Status Deficiency: ? <20 ng/mL Insufficiency: ?20-29 ng/mL Sufficiency: ?30-80 ng/mL Possible Toxicity: ??>80 ng/mL Based on [place] of Medicine recommendations Biotin supplements may cause clinically significant interference for this test assay. ??If interference is suspected, it is strongly recommended that biotin is discontinued for at least one week prior to retesting. Amy Mclaughlin DO SEND OUTS [facility] [address] [place] [address], * (ABNORMAL) PROTIME-INR (02/16/2024 2:33 PM CDT) INR 3.3(H) <1.3 02/16/2024 9:25 PM CDT [facility] PROTIME 35.1(H) 10.3 - 12.3 sec 02/16/2024 9:25 PM CDT [facility] Blood BLOOD SPECIMEN / Unknown Venipuncture / Unknown 02/16/2024 2:33 PM CDT 02/16/2024 2:36 PM CDT [facility] - 02/16/2024 9:25 PM CDT ?Therapeutic Range 2.0-3.0 for most anticoagulated patients 2.5-3.5 or 4.0 for high risk patients The INR is only used for patients on stable oral anticoagulant therapy. It makes no significant contribution to the diagnosis or treatment of patients whose Protime is prolonged for other reasons. INR results are increased when heparin levels exceed 1.0 U/mL, which corresponds to an aPTT >125 seconds if the patient is on UFH. Amy Mclaughlin DO HEMATOLOGY [facility] [address] [place] [address], * (ABNORMAL) BASIC METABOLIC PANEL (02/16/2024 2:33 PM CDT) SODIUM 141 136 - 145 mmol/L 02/16/2024 9:42 PM CDT [facility] POTASSIUM 3.5 3.5 - 5.1 mmol/L 02/16/2024 9:42 PM CDT [facility] CHLORIDE 101 98 - 107 mmol/L 02/16/2024 9:42 PM CDT [facility] CO2,TOTAL 28 22 - 29 mmol/L 02/16/2024 9:42 PM CDT [facility] ANION GAP 12 5 - 18 02/16/2024 9:42 PM CDT [facility] GLUCOSE 89 70 - 99 mg/dL 02/16/2024 9:42 PM CDT [facility] CALCIUM 9.1 8.8 - 10.2 mg/dL 02/16/2024 9:42 PM CDT [facility] BUN 17 8 - 23 mg/dL 02/16/2024 9:42 PM CDT [facility] CREATININE 1.07(H) 0.50 - 0.90 mg/dL 02/16/2024 9:42 PM T [facility] BUN/CREAT RATIO 16 10 - 20 9:42 PM CDT [facility] eGFR 56(L) >90 mL/min/1.7 3m2 02/16/2024 9:42 PM CDT [facility] Comment:As of 2021, eG FR is calculated by the CKD-EPI creatinine equation without race adjustment. ??eGFR can be influenced by muscle mass, exercise, and diet. ??The reported eGFR is an estimation only and is only applicable if the renal function is stable. Blood BLOOD SPECIMEN / Unknown Venipuncture / Unknown 02/16/2024 2:33 PM CDT 02/16/2024 2:36 PM CDT Amy Mclaughlin DO CHEMISTRY [facility] [address] [place] [address], * (ABNORMAL) XR DXA BONE DENSITY 2 SITES AXIAL (02/06/2024 11:45 AM CDT) Anatomical Region Laterality Modality Spine, HIPS, HIPL, HIPR Other Impressions 02/18/2024 2:20 PM CDT Osteopenia. RECOMMENDATIONS: The National Osteoporosis Foundation recommends pharmacologic treatment for patients with T-scores of -2.5 or less, patients with prior history of fragility fractures, or patients with 10-year probability of greater than 3% at hips or greater than 20% of suffering major osteoporotic fractures. Recommend continued optimization of calcium and vitamin D intake through dietary means and/or supplementation and regular exercise. Repeat scan recommended in 3-5 years. Lizett Membreno PA-C [facility] 02/18/2024 ?? Narrative 02/18/2024 2:20 PM CDT For Patients: Results are automatically released to your [facility] ([employer]) account once available, in compliance with federal regulations. This means that you may see your results before your provider has had a chance to review them. Please allow 2-3 business days for your provider to comment on the results. XR DXA Bone Mineral Density (BMD) EXAM LOCATION: [address] [address] PATIENT NAME: Cecilia Holley DATE OF : 1955 EXAM DATE: 02/06/2024 REQUESTING PROVIDER: Amy Mclaughlin DO GENDER AT : female HEIGHT: 5' 3.43 (09/04/2023) WEIGHT: ??216 lb 3.2 oz (09/04/2023) MENOPAUSAL STATUS: Postmenopausal RACE/ETHNICITY: White RISK FACTORS: White Race CURRENT MEDICATION FOR BONE LOSS: NONE INDICATION: Initial scan for screening and Post-Menopause COMPARISON DATE(S): None DXA scans are compared to prior studies for a patient only when the two (or more) studies were performed on the same scanner. It is not possible to compare data generated on one scanner to data from another because there are not standards in DXA equipment. This applies even if the two scanners are made by the same rn bsn. PROCEDURE: Dual-energy x-ray absorptiometry performed with routine technique. Reporting is completed in the form of a T-score. The T-score represents the standard deviation from peak bone mass based on young healthy adult. A Z-score is used for diagnosis in premenopausal women, and for men under the age of 50. FINDINGS: RESULT LUMBAR SPINE L1 - L4 (L3) BMD: 1.087 g/cm2 T-Score: - 0.8 Z-Score: - 0.2 Change from prior: ??None RESULTS FEMUR Left femoral neck BMD: 0.787 g/cm2 T-Score: - 1.8 Z-Score: - 0.9 Change from prior: ??None Right femoral neck BMD: 0.807 g/cm2 T-Score: - 1.7 Z-Score: - 0.7 Change from prior: ??None Left hip BMD: 0.827 g/cm2 T-Score: - 1.4 Z-Score: - 0.8 Change from prior: ??None Right hip BMD: 0.834 g/cm2 T-Score: - 1.4 Z-Score: - 0.7 Change from prior: ??None WHO criteria: Normal: T-score at or above -1 SD Osteopenia: T-score between -1.1 and -2.4 SD Osteoporosis: T-score at or below -2.5 SD FRAX RISK CALCULATION (USED FOR OSTEOPENIA ONLY): 10-year probability of major osteoporotic fracture: 9.9%. 10-year probability of hip fracture: 1.6%. Amy Mclaughlin DO DEXA * COLONOSCOPY SCREENING (06/19/2023 12:00 AM CDT) Amy Peters Detert DO GI PROCEDURE ORD * XR MAMMO BILAT SCREENING (01/07/2022 1:48 PM CDT) Anatomical Region Laterality Modality BREASTS, Breast Left, Breast Right Bilateral Mammography 01/10/2022 3:41 PM CDT Impressions 01/10/2022 4:13 PM CDT LEFT breast asymmetry/mass. RECOMMENDATIONS: LEFT breast ultrasound recommended. A member of the radiology staff will be contacting the patient to arrange for this additional study. BI-RADS Category 0: Incomplete: Need Additional Imaging Evaluation Dictated by: Ciro Stern MD @01/10/2022 3:41:12 PM / PROMISE:alejandro Narrative 01/10/2022 4:13 PM CDT For Patients: As a result of the Cures Act, medical imaging exams and procedure reports are released immediately into your electronic medical record. ??You may view this report before your referring provider. ?? If you have questions, please contact your health care provider. BILATERAL DIGITAL SCREENING MAMMOGRAM WITH COMPUTER-AIDED DETECTION, 01/07/2022 CLINICAL HISTORY: Routine screening exam. COMPARISON: 08/30/2017, 07/13/2016, 05/22/2015. TECHNIQUE: Digital mammogram in CC and MLO projections including computer-aided detection (CAD). BREAST COMPOSITION: The breasts are almost entirely fatty. FINDINGS: RIGHT Breast: No suspicious findings. LEFT Breast: Small nodular density upper outer quadrant 4 cm from the nipple. Amy Lorraine Detert DO MAMMO * ANTI HCV (06/09/2015 2:20 PM CDT) HEPATITIS C ANTIBODY Non-Reacti ve Non-Reacti ve 06/09/2015 6:44 PM CDT [facility] Blood specimen (specimen) BLOOD SPECIMEN / Unknown Venipuncture / Unknown 06/09/2015 2:20 PM CDT 06/09/2015 2:20 PM CDT Narrative [facility] - 06/09/2015 6:44 PM CDT Antibodies to HCV not detected; does not exclude the possibility of exposure to HCV. Schuyler Shell MD [facility] LABORATORY-CENTRAL LABORATORY [address] [place] [address], from Last 3 Months or Most Recently Relevant to Health Maintenance Advance Directives * Full Code (Latest Code Status on File) Date Activated Date Inactivated Comments 08/30/2023 10:56 AM 09/02/2023 3:09 PM Question Answer Comments Code Status Discussion: Reviewed Preferences * Full Code Date Activated Date Inactivated Comments 02/10/2022 8:36 AM 02/10/2022 3:09 PM Question Answer Comments Code Status Discussion: Unable to Assess Preferences, Provider to review later * Full Code Date Activated Date Inactivated Comments 07/31/2012 2:40 PM 08/03/2012 6:21 PM * Full Code Date Activated Date Inactivated Comments 09/03/2011 7:04 PM 09/08/2011 3:39 PM * Full Code Date Activated Date Inactivated Comments 08/26/2011 11:01 AM 08/31/2011 2:11 PM Care Teams Fraud Investigator Relationship Specialty Start Date End Date Amy Mclaughlin DO [address] [place] [address] PCP - General Family Practice 09/18/15
[2024-04-27 17:06] LABS: Appearance Urine Cloudy (Clear); Bilirubin Urine Negative (Negative); Blood Urine 3+ (Negative); Color Urine Red (Yellow); Glucose Urine Negative (Negative); Ketones Urine 2+ (Negative); Leukocyte Esterase Urine Negative (Negative); Nitrite Urine Negative (Negative); Protein Urine 2+ (Negative); Specific Gravity Urine 1.025 (1.000-1.030); Urobilinogen Urine 0.2 (0.2-1.0); pH Urine 7.5 (5.0-8.5)
[2024-04-27 17:16] LABS: RBC Urine >100 (0-2); WBC Urine 0-2 (0-5)
[2024-04-27 18:00] VITALS: BP 120/66; PULSE 75; RESP 21; TEMP 36.9; O2SAT 88
== END 2024-04-27 19:01 | disposition home or self-care (01) ==
PROVIDERS: Emergency Provider Emergency Medicine Emergency Medical Services; PCP Family Medicine
DX: N20.1 Calculus of ureter (principal)
CPT/HCPCS: 74176; 81001; 96374; 96375; 99284; J1170; J2405

== ENCOUNTER 2024-05-16 09:27 | Outpatient (CLI) | payer MEDICARE, BC, SELFPAY ==
--- OUTSIDE RECORDS SUMMARY | 2024-05-18 12:53 | XMS_ITS | Clinical Summary ---
Author Organization [email or web address] [facility] Address [place], [place] [address] Care Team Providers Care Fisher Crab Name Role Phone Amy Mclaughlin DO Primary [...] Comment Field 07/28/2014 sneeze Cetirizine *Unknown 06/25/2012 [place] like she was swollen Medications Medication Sig [...] mcg nasal sprayIndications :Environmental allergies Inhale 1 Anderson to both nostrils once daily. Use as [...] 2013 Renal stone 07/31/2012 Overview: April 2024: [facility] ED where CT suggested a 9mm right [...] Patient previously declined further treatment then. Amy Jean BaptisteOLainey 01/25/2023 6:11 PM Hydronephrosis 07/31/2012 01/09/2015 DICK [...] Encounters Date Type Department Care Team Description 05/17/2024 Anticoagulation (warfarin) [facility] [address] [place] [address] 1, [facility] Anticoagulation (Outside Lab) 05/17/2024 Travel 05/16/2024 Nurse Triage [facility] [address] [place] [address] Amy Mclaughlin DO Post-op; Blood In Urine; Weak 05/10/2024 Anticoagulation (warfarin) [facility] [address] [place] [address] 1, [facility] Anticoagulation 05/09/2024 3:00 PM CDT Orders Only [address] [address] Lab, [place] 05/09/2024 Travel 05/07/2024 Anticoagulation (warfarin) [facility] [address] [place] [address] 1, [facility] Anticoagulation (Chart update: hold for 05/23/24 procedure) 05/07/2024 Telephone [facility] [address] [place] [address] Amy Mclaughlin, Anticoagulation (Procedure Ureteral Stent removal on 05/23/24 ) 05/07/2024 Anticoagulation (warfarin) [facility] [address] [place] [address] 1, [facility] Anticoagulation 05/06/2024 2:40 PM CDT Office Visit [facility] [address] [place] [address] Jim Mendenhall MD Hospital F/U (DOD: 05/02/2024 [facility] for RIGHT Kidney Stone) 05/06/2024 Travel 05/04/2024 Orders Only [facility] Emergency Department [address] [place], [place] [id number] Misty Man PharmD <No scans attached> 05/03/2024 Patient Outreach [facility] [address] [place] [address] Cyndi Oreilly, RN Primary RN Care Management; Hospital F/U ([facility] [employer]) 05/02/2024 9:10 AM CDT Anesthesia Event [facility] [address] [place] [address] Dannie Holcomb MD Moore, Sara Nikolai, PASQUALE 05/02/2024 9:00 AM CDT - 05/02/2024 10:27 AM CDT Surgery [facility] [address] [place], [place] [id number] Roberto Shannon MD CYSTOSCOPY RIGHT URETEROSCOPY HOLMIUM LASER LITHOTRIPSY URETERAL STENT PLACEMENT 04/30/2024 4:44 PM CDT - 05/02/2024 7:46 PM CDT Emergency [facility] [address] [place] [address] Velma Chavez MD Koshnick, Candice Regalado MD [facility], [facility] [place], MD Dana Gerber, MD Irving Lemus, Eusebio Moncada DO Kidney stones (Primary Dx); Essential hypertension; History of DVT (deep vein thrombosis) Discharge Disposition: Home Self Care 04/30/2024 Travel 04/30/2024 Telephone [facility] [address] [place] [address] Amy Mclaughlin DO PATRICK 04/29/2024 Telephone [facility] [address] [place] [address] Amy Mclaughlin DO Questions 04/27/2024 Orders Only [facility] Scanner 1 scan: (1-Ord) [facility], ABDOMEN PELVIS W/O CON, 04/27/2024 04/27/2024 Orders Only [facility] Scanner 1 scan: (1-Ord) [facility], URINALYSIS, 04/27/2024 04/27/2024 Orders Only [facility] Scanner 1 scan: (1-Ord) [facility], ABDOMEN PELVIS WITHOUT CONTRAST, 04/27/2024 04/24/2024 11:45 AM CDT Orders Only [facility] [address] [facility] [place] [address] Lab, [facility] 04/24/2024 Anticoagulation (warfarin) [facility] [address] [place] [address] 1, [facility] Anticoagulation 04/24/2024 Travel 03/15/2024 11:15 AM CDT Orders Only [facility] [address] [place] [address] Lab, [facility] 03/15/2024 Anticoagulation (warfarin) [facility] [address] [place] [address] 1, [facility] Anticoagulation (Lab ) 03/15/2024 Travel 03/12/2024 Telephone [facility] [address] [place] [address] Amy Mclaughlin DO Anticoagulation (Annual re-enrollment ) 02/19/2024 Orders Only [facility] [address] [place] [address] Amy Mclaughlin DO <No scans attached> 02/17/2024 Anticoagulation (warfarin) [facility] [address] [facility] [place] [address] 1, [facility] Anticoagulation (OV ) 02/16/2024 3:30 PM CDT Office Visit [facility] [address] [facility] [address] Amy Mclaughlin DO Medicare ANNUAL (subsequent) Visit (68 yr); Back Pain/problem 02/16/2024 3:00 PM CDT Orders Only [facility] [address] [facility] [address] Lab[facility] 02/16/2024 Travel from Last 3 Months [...] Care Team (Late st Contact Info) Description 05/30/2024 2:30 PM CDT Orders Only [facility] [address] [place] [address] Lab, [facility] Maintenance Due Date Last [...] Completed 02/06/2024 Medical Devices Implanted Type Area Can Runner Device Identifier Shelf Expiration Date Model / Serial / Lot Stent Contour [id number] - [id number] Implanted:Qty: 1 on 05/31/2008 at [facility] Right: Ureter [facility] [id number] / / NOT DOCUMENTED Stent Uret [id number] - [id number] Implanted:Qty: 1 on 08/02/2012 at [facility] Right: Ureter [employer] Nafisa [id number] / / [id number] Stent Uret [id number] Tria Soft No Guidewire - [id number] Implanted:Qty: 1 on 05/02/2024 by Roberto Shannon MD at [facility] Right: Ureter [facility] 12/05/2026 [id number] / / [id number] Procedures Procedure Name Priority Date/Time Associated Diagnosis Comments INR,POCT Routine 05/16/2024 PLATELET COUNT STAT 05/09/2024 2:38 PM CDT [...] to Health Maintenance Results * (ABNORMAL) INR,POCT (05/16/2024) Only the most recent of3 resultswithin the time period is included. INR 1.7(BOAT ENGINES INSTALLER AL) 0.9 - 1.1 [facility] Blood BLOOD SPECIMEN / Unknown 05/16/2024 Amy Mclaughlin DO LABORATORY [facility] [address] [place] [address] * PLATELET COUNT (05/09/2024 2:38 PM CDT) PLATELET COUNT 367 140 - 440 thou/cu mm 05/09/2024 2:45 PM CDT [facility] MPV 9.8 6.5 - 11.0 fL 05/09/2024 2:45 PM CDT [facility] Blood BLOOD SPECIMEN / Unknown Butterfly / Unknown 05/09/2024 2:38 PM CDT 05/09/2024 2:41 PM CDT Narrative [facility] - 05/09/2024 2:45 PM CDT MD to monitor if out of range, to monitor for Heparin-Induced Thrombocytopenia while on lovenox. Amy Mclaughlin DO HEMATOLOGY Performing Organization Address City/[facility]/ZIP Co de Phone Number [facility] [address] [place] [address], [place] [phone] * (ABNORMAL) PROTIME-INR (05/09/2024 2:38 PM CDT) Only the most recent of7 resultswithin the time period is included. INR 2.3(H) <1.3 05/09/2024 9:51 PM CDT [facility] PROTIME 24.9(H) 10.3 - 12.3 sec 05/09/2024 9:51 PM CDT [facility] Blood BLOOD SPECIMEN / Unknown Butterfly / Unknown 05/09/2024 2:38 PM CDT 05/09/2024 2:41 PM CDT Fab [facility] - 05/09/2024 9:51 PM CDT ?Therapeutic Range [...] seconds if the patient is on UFH. Aym Mclaughlin DO HEMATOLOGY Performing Organization Address City/[facility]/ZIP Co de Phone Number [facility] [address] [place] [address], [place] * (ABNORMAL) BASIC METABOLIC PANEL (05/06/2024 3:41 PM CDT) Only the most recent of4 resultswithin the time period is included. SODIUM 143 136 - 145 mmol/L 05/07/2024 9:[address] [facility] POTASSIUM 3.6 3.5 - 5.1 mmol/L 05/07/2024 9:[address] [facility] CHLORIDE 105 98 - 107 mmol/L 05/07/2024 9:[address] [facility] CO2,TOTAL 26 22 - 29 mmol/L 05/07/2024 9:[address] [facility] ANION GAP 12 5 - 18 05/07/2024 9:[address] [facility] GLUCOSE 121(H) 70 - 99 mg/dL 05/07/2024 9:[address] [facility] CALCIUM 9.0 8.8 - 10.2 mg/dL 05/07/2024 9:[address] [facility] BUN 13 8 - 23 mg/dL 05/07/2024 9:[address] [facility] CREATININE 1.00(H) 0.50 - 0.90 mg/dL 05/07/2024 9:[address] [facility] BUN/CREAT RATIO 13 10 - 20 9:[address] [facility] eGFR 61(L) >90 mL/min/1.7 3m2 05/07/2024 9:[address] [facility] Comment:As of 2021, [...] 3:41 PM CDT Jim Mendenhall MD CHEMISTRY [facility] [address] [place] [address], [place] * XR RETROGRADE PYELOGRAM W/WO KUB (05/02/2024 [...] - 2.4 mg/dL 05/02/2024 8:49 AM CDT [facility] Blood BLOOD SPECIMEN / Unknown Non-Lab Venipuncture / Unknown 05/02/2024 6:20 AM CDT 05/02/2024 6:50 AM CDT Gladys Cortez MD CHEMISTRY Performing Organization Address City/[facility]/ZIP Co de Phone Number [facility] [address] [place] [address], [place] * EKG 12 LEAD (05/01/2024 3:37 PM [...] NOW QTc 431 ms BEYOND NOW P [place] 28 degrees BEYOND NOW R [place] -9 degrees BEYOND NOW T [place] 47 degrees BEYOND NOW 05/01/2024 3:37 PM CDT 05/02/2024 12:31 PM CDT Gladys Cortez MD EKG ORD Performing Organization Address [facility] de Phone Number BEYOND NOW [place], [place] * (ABNORMAL) CREATININE (05/01/2024 6:00 AM CDT) eGFR 51(L) >90 mL/min/1.7 3m2 05/01/2024 7:11 AM CDT [facility] [employer] (1BOG)[facility] Comment:As of 2021, eG FR is calculated by the CKD-EPI creatinine equation without race adjustment. ??eGFR can be influenced by muscle mass, exercise, and diet. ??The reported eGFR is an estimation only and is only applicable if the renal function is stable. CREATININE 1.17(H) 0.50 - 0.90 mg/dL 05/01/2024 7:11 AM CDT [facility] Blood BLOOD SPECIMEN / Unknown Butterfly / Unknown 05/01/2024 6:00 AM CDT 05/01/2024 6:24 AM CDT Candice Scanlon MD CHEMISTRY Performing Organization Address [facility]/ZIP Co de Phone Number [facility] [address] [place] [address], [place] * (ABNORMAL) Lipase FOR ADD ON (05/01/2024 6:00 AM CDT) LIPASE 184.0(H) 13.0 - 60.0 IU/L 05/01/2024 5:36 PM CDT [facility] Blood BLOOD SPECIMEN / Unknown Butterfly / Unknown 05/01/2024 6:00 AM CDT 05/01/2024 6:24 AM CDT Gladys Cortez MD CHEMISTRY [facility] [address] [place] [address], * (ABNORMAL) HEPATIC FUNCTION PANEL (05/01/2024 6:00 AM CDT) ALBUMIN 3.6(L) 4.0 - 4.9 g/dL 05/01/2024 5:43 PM CDT [facility] PROTEIN,TOTAL 7.3 6.0 - 8.0 g/dL 05/01/2024 5:43 PM CDT [facility] BILIRUBIN,TOTAL 0.6 0.0 - 1.2 mg/dL 05/01/2024 5:43 PM CDT [facility] BILIRUBIN,DIRECT <0.2 0.0 - 0.3 mg/dL 05/01/2024 5:43 PM CDT [facility] BILIRUBIN,INDIRE CT 05/01/2024 5:43 PM CDT [facility] Comment:Unable to calculate, Direct Bili <0.2 ALK PHOSPHATASE 69 35 - 104 IU/L 05/01/2024 5:43 PM CDT [facility] ALT (SGPT) 16 10 - 35 IU/L 05/01/2024 5:43 PM CDT [facility] AST (SGOT) 27 10 - 35 IU/L 05/01/2024 5:43 PM CDT [facility] Blood BLOOD SPECIMEN / Unknown Butterfly / Unknown 05/01/2024 6:00 AM CDT 05/01/2024 6:24 AM CDT Gladys Cortez MD CHEMISTRY Performing Organization Address [facility]/ZIP Co de Phone Number [facility] [address] [place] [address], * Electrolyte panel AM (05/01/2024 6:00 AM CDT) SODIUM 139 136 - 145 mmol/L 05/01/2024 7:11 AM CDT [facility] POTASSIUM 3.5 3.5 - 5.1 mmol/L 05/01/2024 7:11 AM CDT [facility] CHLORIDE 101 98 - 107 mmol/L 05/01/2024 7:11 AM CDT [facility] CO2,TOTAL 24 22 - 29 mmol/L 05/01/2024 7:11 AM CDT [facility] ANION GAP 14 5 - 18 05/01/2024 7:11 AM CDT [facility] Blood BLOOD SPECIMEN / Unknown Butterfly / Unknown 05/01/2024 6:00 AM CDT 05/01/2024 6:24 AM CDT Candice Scanlon MD CHEMISTRY Performing Organization Address [facility] Co de Phone Number [facility] [address] [place] [address], [place] * CT ABDOMEN PELVIS STONE PROTOCOL WO [...] For Patients: ??As a result of the Cures Act, medical [...] None Seen /HPF 04/30/2024 8:45 PM CDT [facility] WBC 6-10(A) 0-2, 3-5, None Seen /HPF 04/30/2024 8:45 PM CDT [facility] BACTERIA None Seen None Seen, Rare, Few Bacteria/ HPF 04/30/2024 8:45 PM CDT [facility] EPITHELIAL CELLS Few None Seen, Few Epi/HPF 04/30/2024 8:45 PM CDT [facility] HYALINE CASTS 11-25(A) 0-2, 3-5 /LPF 04/30/2024 8:45 PM CDT [facility] GRANULAR CASTS 0-2(A) (none) /LPF 04/30/2024 8:45 PM CDT [facility] Urine URINE SPECIMEN / Unknown Non-Blood / Unknown 04/30/2024 8:29 PM CDT 04/30/2024 8:35 PM CDT Velma Chavez MD URINE Performing Organization Address City/[facility]/ZIP Co de Phone Number [facility] [address] * (ABNORMAL) URINE CULTURE (04/30/2024 8:29 PM CDT) CULTURE RESULT(A) 05/04/2024 8:01 AM CDT [facility] CULTURE 10,000-50,000 CFU/mL Enterococcus faecalis 05/04/2024 8:01 AM CDT [facility] Urine URINE SPECIMEN / Unknown Non-Blood / Unknown 04/30/2024 8:29 PM CDT 04/30/2024 8:35 PM CDT Narrative Organism Antibiotic Method Susceptibility Enterococcus faecalis NITROFURANTOIN S Enterococcus faecalis AMPICILLIN S Velma Chavez MD MICROBIOLOGY [facility] [address] [place] [address], [place] * (ABNORMAL) UA W/ SEDIMENT EXAM REFLEXED PER CRITERIA (04/30/2024 8:29 PM CDT) COLOR Yellow Yellow Color 04/30/2024 8:45 PM CDT [facility] CLARITY Cloudy(A) Clear Clarity 04/30/2024 8:45 PM CDT [facility] SPECIFIC GRAVITY,URINE 1.015 1.010, 1.015, 1.020, 1.025 04/30/2024 8:45 PM CDT [facility] PH,URINE 5.0(A) 6.0, 7.0, 8.0, 5.5, 6.5, 7.5, 8.5 04/30/2024 8:45 PM CDT [facility] UROBILINOGEN, QUALITATIVE Normal Normal EU/dl 04/30/2024 8:45 PM CDT [facility] PROTEIN, URINE Negative Negative mg/dL 04/30/2024 8:45 PM CDT [facility] GLUCOSE, URINE Negative Negative mg/dL 04/30/2024 8:45 PM CDT [facility] KETONES,URINE 40(A) Negative mg/dL 04/30/2024 8:45 PM CDT [facility] BILIRUBIN,URI NE Negative Negative 04/30/2024 8:45 PM CDT [facility] OCCULT BLOOD,URINE Moderate(A) Negative 04/30/2024 8:45 PM CDT [facility] NITRITE Negative Negative 04/30/2024 8:45 PM CDT [facility] LEUKOCYTE ESTERASE Small(A) Negative 04/30/2024 8:45 PM CDT [facility] Urine URINE SPECIMEN / Unknown Non-Blood / Unknown 04/30/2024 8:29 PM CDT 04/30/2024 8:35 PM CDT Velma Chavez MD URINE [facility] [address] [place] [address], * CBC W PLT NO DIFF (04/30/2024 5:17 PM CDT) WHITE BLOOD COUNT 7.9 4.5 - 11.0 thou/cu mm 04/30/2024 5:41 PM CDT [facility] RED BLOOD COUNT 4.67 4.00 - 5.20 mil/cu mm 04/30/2024 5:41 PM CDT [facility] HEMOGLOBIN 13.4 12.0 - 16.0 g/dL 04/30/2024 5:41 PM CDT [facility] HEMATOCRIT 41.1 33.0 - 51.0 % 04/30/2024 5:41 PM CDT [facility] MCV 88 80 - 100 fL 04/30/2024 5:41 PM CDT [facility] MCH 28.7 26.0 - 34.0 pg 04/30/2024 5:41 PM CDT [facility] MCHC 32.6 32.0 - 36.0 g/dL 04/30/2024 5:41 PM CDT [facility] RDW 13.9 11.5 - 15.5 % 04/30/2024 5:41 PM CDT [facility] PLATELET COUNT 357 140 - 440 thou/cu mm 04/30/2024 5:41 PM CDT [facility] MPV 10.2 6.5 - 11.0 fL 04/30/2024 5:41 PM CDT [facility] NRBC 0.0 % 04/30/2024 5:41 PM CDT [facility] ABS NRBC 0.0 thou /cu mm 04/30/2024 5:41 PM CDT [facility] Blood BLOOD SPECIMEN / Unknown Venipuncture / Unknown 04/30/2024 5:17 PM CDT 04/30/2024 5:33 PM CDT Velma Chavez MD HEMATOLOGY [facility] [address] [place] [address], * SCAN-CARDIAC STRIP (04/30/2024 12:00 AM CDT) Narrative 04/30/2024 12:00 AM CDT Ordered by an unspecified provider. Other Clinical Staff OTHER * SCAN-LABORATORY REPORT (04/27/2024 12:00 AM CDT) Scanner OTHER * SCAN-CT INTERPRETATION (04/27/2024 12:00 AM CDT) Only the most recent of2 resultswithin the time period is included. Anatomical Region Laterality Modality Other Scanner OTHER * (ABNORMAL) LIPID PANEL W REFLEX MEASURED LDL (02/16/2024 2:33 PM CDT) CHOLESTEROL,TOTAL 178 100 - 199 mg/dL 02/16/2024 9:42 PM CDT [facility] Comment: Cholesterol, Total Reference Ranges Desirable <200 mg/dL Borderline 200-239 mg/dL High >=240 mg/dL TRIGLYCERIDES 257(H) <150 mg/dL 02/16/2024 9:42 PM CDT [facility] HDL CHOLESTEROL 43 >40 mg/dL 9:42 PM CDT [facility] NON-HDL CHOLESTEROL 135 <145 mg/dl 02/16/2024 9:42 PM CDT [facility] CHOL/HDL RATIO 4.14 <4.50 02/16/2024 9:42 PM CDT [facility] LDL CHOLESTEROL 84 <=130 mg/dL 02/16/2024 9:42 PM CDT [facility] VLDL CHOLESTEROL 51(H) <=30 mg/dL 02/16/2024 9:42 PM CDT [facility] PROVIDER ORDERED STATUS RANDOM 02/16/2024 9:42 PM CDT [facility] Blood BLOOD SPECIMEN / Unknown Venipuncture / Unknown 02/16/2024 2:33 PM CDT 02/16/2024 2:36 PM CDT Amy Mclaughlin DO CHEMISTRY Performing Organization Address [facility] Co de Phone Number [facility] [address] [place] [address], * VITAMIN D 25 (DEFICIENCY) (02/16/2024 2:33 PM CDT) Pathologist [facility] VITAMIN D TOTAL 38.7 20.0 - 80.0 ng/mL 02/19/2024 8:36 AM CDT [facility] Blood BLOOD SPECIMEN / Unknown Venipuncture / Unknown 02/16/2024 2:33 PM CDT 02/16/2024 2:36 PM CDT Narrative [facility] - 02/19/2024 8:36 AM CDT ? Vitamin D Status Deficiency: ? <20 ng/mL Insufficiency: ?20-29 ng/mL Sufficiency: ?30-80 ng/mL Possible Toxicity: ??>80 ng/mL Based on [place] of Medicine recommendations Biotin supplements may cause clinically significant interference for this test assay. ??If interference is suspected, it is strongly recommended that biotin is discontinued for at least one week prior to retesting. Amy Mclaughlin DO SEND OUTS Performing Organization Address [facility] Co de Phone Number [facility] [address] [place] [address], * (ABNORMAL) XR DXA BONE DENSITY 2 [...] recommended in 3-5 years. Lizett Membreno PA-C [facility] 02/18/2024 ?? Narrative 02/18/2024 2:20 PM CDT For Patients: Results are automatically released to your [facility] ([employer]) account once available, in compliance with federal regulations. This means that you may see your results before your provider has had a chance to review them. Please allow 2-3 business days for your provider to comment on the results. XR DXA Bone Mineral Density (BMD) EXAM LOCATION: [address] [address] PATIENT NAME: Cecilia Holley DATE OF : 1955 EXAM DATE: 02/06/2024 REQUESTING PROVIDER: Amy Mclaughlin, GENDER AT : female HEIGHT: 5' 3.43 [...] two scanners are made by the same mobile home servicer. PROCEDURE: Dual-energy x-ray absorptiometry performed with routine [...] COLONOSCOPY SCREENING (06/19/2023 12:00 AM CDT) Amy Buckt DO GI PROCEDURE ORD * XR MAMMO [...] For Patients: As a result of the Scale Computing Cures Act, medical imaging exams and procedure [...] quadrant 4 cm from the nipple. Amy Buckt DO MAMMO * ANTI HCV (06/09/2015 2:20 PM CDT) HEPATITIS C ANTIBODY Non-Reacti ve Non-Reacti ve 06/09/2015 6:44 PM CDT [facility] Blood specimen (specimen) BLOOD SPECIMEN / Unknown Venipuncture / Unknown 06/09/2015 2:20 PM CDT 06/09/2015 2:20 PM CDT Narrative [facility] - 06/09/2015 6:44 PM CDT Antibodies to HCV not detected; does not exclude the possibility of exposure to HCV. Schuyler Shell MD SEND OUTS [facility] [address] [place] [address], from Last 3 Months or Most Recently [...] 7:04 PM 09/08/2011 3:39 PM Care Teams Fisher Crab Relationship Specialty Start Date End Date Amy Mclaughlin DO [address] [place] [address] PCP - General Family Practice 09/18/15
--- OUTSIDE RECORDS SUMMARY | 2024-05-18 12:53 | XMS_ITS | Data Portability ---
Author Organization [place] [facility], [facility] Address [address] [place] [address] Care Team Providers Care Biztalk Developer Name Role Phone ASHLEE SHEDD Primary Care Provider Assessment Encounter Date Assessment [...] is recommended for her to present to [facility] today for more urgent surgical intervention. We discussed this will likely include ureteroscopy and ureteral stent placement and may also require laser lithotripsy at the same time (though surgeon may determine to do laser lithotripsy in 2-3 weeks as staged procedure). She was advised to remain NPO until seen by the urology team at [facility]. [facility] MD and PA team were notified. 1. 1 cm distal right ureteral stone, 2 adjacent right ureteral stones (3 mm) - reviewed outside CT scan, labs, ED notes - discussion with patient as outlined above - recommended going directly to [facility] ER now - advised her to remain NPO for likely surgery for now - notified Dr. Yo/Latoya Brown PA-C who are covering [facility] for the group today 2. Punctate right renal stones - monitor for now - stone prevention diet - recommend KUB 1 year - would benefit from metabolic stone work-up in future as above [email or web address] Not available 08/30/2023 10:27:20 Plan of Treatment Reminders Order Date Submit Date Provider Last Modified By Organization Details Last Modified Time Details Appointments POST OP 10 08/15/2 024 10:30AM Not available Not available Not available Lab None record ed. Referral None record [...] record ed. [email or web address] Not Available 09/11/2023 12:26:53 04/30/2004/27/2024 CT, abdom en + pelvi s, w/o contr ast No observ ation record ed. Not Available 04/30/2024 14:59:29 Result Notes None recorded. Problems Name Status Onset Date Resolution Date Notes Provider Name and Address Organization Details Recorded Time Ureteric stone Active 3 Antonia Chaney PA-C [address] [place] [address],[address], [address], [facility] 08/29/2023 21:32:37 Kidney stone Active 3 Antonia Chaney PA-C [address] [place] [address],[address], [address], [facility] 08/29/2023 21:32:40 Problem Notes None recorded. Procedures Surgical History None recorded. Imaging Results Imaging Date Name Status LastModified by Organiz ation Details LastModified Time 08/28/2023 CT, abdomen + pelvis, w/o contrast completed [email or web address] Information not available 08/29/2023 14:02:04 09/08/2023 imaging/diagn ostic result completed [email or web address] Information not available 09/11/2023 12:26:53 04/27/2024 CT, abdomen + pelvis, w/o contrast completed Information not available 04/30/2024 14:59:29 Procedure Notes None recorded. Medical Equipment None Reported. Allergies Allergen ID Allergen Name Allergen Category Reaction Reaction Severity Criticality Documentation Date Start Date Code Code System Note Provider Name and Address Organization Details Recorded Time 021039 Iodinated contrast media (substanc e) medicatio n hives Not available Not available 08/30/2023 80076 2003 [facility]ED [facility] Medications Name Sig Start Date Stop [...] Updated DateTime 08/30/2023 162.56 cm 36.7 kg/m2 95099.77 g Radha Deal [facility] 08/30/2023 09:34:28 Social History Question Answer Notes LastModified by Organizat ion Details LastModified Time Tobacco Smoking Status Never Smoker Radha Richardss cristian [facility] 08/30/2023 09:35:34 What Is Your Level Of Alcohol Consumption? None [email or web address] Information not available 08/30/2023 What Was The Date Of Your Most Recent Tobacco Screening? 08/30/2023 Information not available 08/30/2023 Sex: Unknown Functional [...] or 50 mcg/0.25mL dose 12/10/2020 completed Radha foster [facility] 08/30/2023 09:34:32 COVID-19, mRNA, LNP-S, PF, 100 mcg/0.5mL dose or 50 mcg/0.25mL dose 01/07/2021 completed Radha foster [facility] 08/30/2023 09:34:32 COVID-19, mRNA, LNP-S, PF, 100 mcg/0.5mL dose or 50 mcg/0.25mL dose 01/26/2022 completed Radha foster [facility] 08/30/2023 09:34:32 COVID-19, mRNA, LNP-S, PF, 100 mcg/0.5mL dose or 50 mcg/0.25mL dose 08/04/2021 completed Radha foster [facility] 08/30/2023 09:34:32 COVID-19, mRNA, LNP-S, bivalent, PF, 50 mcg/0.5 mL or 25mcg/0.25 mL dose 02/06/2023 completed Radha foster [facility] 08/30/2023 09:34:32 COVID-19, mRNA, LNP-S, bivalent, PF, 50 mcg/0.5 mL or 25mcg/0.25 mL dose 06/22/[address] [facility] 08/30/2023 09:34:32 COVID-19, mRNA, LNP-S, PF, 50 mcg/0.5 mL 07/27/[address] [facility] 08/30/2023 09:34:32 pneumococcal polysaccharide PPV23 [facility] 09:34:32 pneumococcal polysaccharide PPV23 08/28/2011 [facility] foster[facility] 08/30/2023 09:34:32 [facility] 09:34:32 Pneumococcal conjugate PCV 13 01/23/2023 completed SEMAJ Neri [facility] 08/30/2023 09:34:32 Influenza, split virus, trivalent, PF 08/28/2011 completed SEMAJ Neri [facility] 08/30/2023 09:34:32 Td (adult), 5 Lf tetanus toxoid, preservative free, adsorbed 06/10/2005 completed SEMAJ Neri [facility] 08/30/2023 09:34:32 Past Encounters Encounter ID Performer Location Encounter Start Date Encounter Closed Date Diagnosis/Indication Diagnosis SNOMED-CT Code [id number] Antonia Chaney PA-C [facility] [address] [id number] 08/30/2023 08:27:04 09/04/2023 13:42:00 Ureteric stone 12259307 Kidney stone 20482379 Health Concerns Section Related Observation LastModified by Organization Detai ls LastModified Time None Recorded Concern Status LastModified by Organization Details LastModified Time None Recorded Advance Directives Directive None Recorded Payers Encounter Date Sequence Insurance Name Policy Number Policy Franco Covered Member ID Franco Member ID Guarantor Name 08/30/2023 1 [employer] - MEDICARE COST [id number] Cecilia Holley [id number] Cecilia Holley Notes Date Note Type Note Provider Name and Address Organization Details Recorded Time 08/30/2023 text/html HPI Notes: 67F with 1 cm distal right ureteral stone and additional ureteral & renal stones. She was seen at [place] ED on 08/28 for RLQ abdominal pain x2 hours. Was not having N/V at the time. [place] similar to prior kidney stone episode (required ureteral stent placement about 10 years ago per her report). CT demonstrated 10 mm distal right ureteral stone with two adjacent stones (3 mm) and additional small renal stones. Was discharged home with tamsulosin and pain medication. Was scheduled to see Dr. Shannon in [place] yesterday for urologic consult, but states she [...] Tobacco: non-smoker EtOH: Antonia Chaney PA-C [address], [place], [address], [facility] 08/30/2023 10:27:28 OBGyn Episode No OBEpisode recorded.
== END 2024-05-16 09:28 | disposition home or self-care (01) ==
LOC: AMB 05-18 12:51
PROVIDERS: PCP Family Medicine; Visit Provider Student in an Organized Health Care Education/Training Program
DX: R53.1 Weakness (principal)
CPT/HCPCS: A0425; A0427

== ENCOUNTER 2024-05-16 09:50 | Emergency (ER) | payer MEDICARE, BC, SELFPAY ==
[2024-05-16 09:56] VITALS: BP 136/76; PULSE 73; RESP 20; TEMP 36.4; O2SAT 98; BMI 36.0
--- NOTE | 2024-05-16 10:10 | ED_ITS ---
HPI - General Adult General Chief complaint: Urogenital Problems, Female Stated complaint: allergic reaction Time Seen by Provider: 05/16/24 09:52 Source: patient Mode of arrival: ambulatory Limitations: no limitations History of Present Illness HPI narrative: Patient is a 68-year-old female presenting to the emergency department for multiple complaints. Two weeks ago she presenting to the emergency department f or a kidney stone was informed follow-up with Urology. She symptoms were causing her greater problems then she went to [facility] ED where she was admitted with a urology consult for cystoscopy, laser this so trips be in a right urethral stent placement. This was performed on 05/02/2024. She was then discharged. Since then she has continued to have blood in her urine and has recently started to have some dysuria. States she recently finished antibiotics. Was also feeling faint and short of breath today. She thinks short of breath this is related to anxiety as she no longer feels short of breath at this time. Vital signs are stable for EMS. Has not required any supplemental oxygen. Is not having any shortness of breath or chest pain at this time. Of no does have a history of PE and previous lung cancer and had part of her left lung removed in the past. Denies any abdominal pain, diarrhea, constipation, chills, weakness, numbness. Did feel warm earlier but did not ch bernardo a temperature. Related Data Home Medications ?Medication ?Instructions ?Recorded ?Confirmed amlodipine 5 mg tablet 5 mg PO DAILY 06/05/22 05/16/24 atenolol 50 mg tablet 50 mg PO DAILY 06/05/22 05/16/24 hydrochlorothiazide 25 mg tablet 25 mg PO DAILY 06/05/22 05/16/24 lisinopril 40 mg tablet 40 mg PO DAILY 06/05/22 05/16/24 potassium chloride 20 mEq 20 meq PO BID 06/05/22 05/16/24 tablet,extended release(part/cryst) warfarin 1 mg tablet 1 mg PO .COMPLEX 06/05/22 05/16/24 amoxicillin 500 mg capsule 1,000 mg PO BID 05/16/24 05/16/24 cephalexin 500 mg capsule 500 mg PO 3XD 05/16/24 05/16/24 enoxaparin 100 mg/mL subcutaneous mg subcut 05/16/24 syringe Previous Rx's ?Medication ?Instructions ?Recorded oxycodone 5 mg tablet 5 mg PO Q8H PRN pain #8 tabs 08/28/23 oxycodone 5 mg capsule 5 mg PO Q6H PRN pain #15 caps 04/27/24 Allergies Allergy/AdvReac Type Severity Reaction Status Date / Time iodine Allergy Severe Verified 04/27/24 16:16 Review of Systems Status of ROS: Reports: 10 or more systems reviewed and unremarkable except as noted in History and below PFSH [facility] Medical History Atypical ductal hyperplasia of left breast ?N60.92 - Unspecified benign mammary dysplasia of left breast (ICD-10) 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 - Malignant carcinoid tumor of the bronchus and lung (ICD-10) Hypertriglyceridemia ?E78.1 - Pure hyperglyceridemia (ICD-10) Liver lesion ?K76.9 - Liver disease, unspecified (ICD-10) Renal stone ?N20.0 - Calculus of kidney (ICD-10) Pulmonary embolism on right ?I26.99 - Other pulmonary embolism without acute cor pulmonale (ICD-10) Carcinoid tumor of lung ?D3A.090 - Benign carcinoid tumor of the bronchus and lung (ICD-10) Nephrolithiasis ?N20.0 - Calculus of kidney (ICD-10) Asthma ?J45.909 - Unspecified asthma, uncomplicated (ICD-10) Essential hypertension ?I10 - Essential (primary) hypertension (ICD-10) Surgical History No significant past surgical history Social History Smoking Status: Never smoker Do you use any of these nicotine containing products: None How often do you have a drink containing alcohol: never How often do you have six or more drinks on one occasion: Never AUDIT-C Alcohol total score: 0 Non-prescribed substance use: denies use Exam Narrative: Exam Narrative: Const: Well-nourished, Well-developed, in mild distress Eyes: PERRL, no conjunctival injection, and symmetrical lids HENT: Atraumatic external nose and ears. Moist mucous membranes. Neck: Symmetric, trachea midline, No thyromegaly. CVS: RRR, No murmurs or gallops. Peripheral pulses 2+ and equal in all extremities RESP: Unlabored respiratory effort. Clear to auscultation bilaterally GI: Nontender/Nondistended, No rebound or guarding. MSK:Extremities w/o deformity, Normal Active ROM Skin: Warm, Dry. No rashes or lesions. Neuro: Normal Muscle tone, No focal neurological deficits. Psych: Awake, Alert, & Oriented x3. Appropriate mood and affect. Const: Vital Signs, click to edit/add: Vital Signs - 24 hr 05/16/24 09:56 05/16/24 10:39 Temperature 97.6 F Pulse Rate [Left P ulse Oximeter] 73 69 Respiratory Rate 20 18 Blood Pressure [Le ft Upper Arm] 136/76 123/71 Pulse Oximetry 98 97 Oxygen Delivery Me thod Room Air Room Air Course Vital Signs Vital signs: Initial Vital Signs Temperature 97.6 F 05/16/24 09:56 Temperature Source Temporal Artery Scan 05/16/24 09:56 Pulse Rate 73 05/16/24 09:56 Pulse Rhythm Regular 05/16/24 09:56 Pulse Strength 3+ Normal 05/16/24 09:56 Respiratory Rate 20 05/16/24 09:56 Blood Pressure 136/76 05/16/24 09:56 Blood Pressure Mean 96 05/16/24 09:56 Blood Pressure Position Sitting 05/16/24 09:56 Pulse Oximetry 98 05/16/24 09:56 Oxygen Delivery Method Room Air 05/16/24 09:56 Vital Signs Temperature 97.6 F 05/16/24 09:56 Pulse Rate 73 05/16/24 09:56 Respiratory Rate 20 05/16/24 09:56 Blood Pressure 136/76 05/16/24 09:56 Pulse Oximetry 98 05/16/24 09:56 Oxygen Delivery Method Room Air 05/16/24 09:56 Temperature 97.6 F 05/16/24 09:56 Pulse Rate 69 05/16/24 10:39 Respiratory Rate 18 05/16/24 10:39 Blood Pressure 123/71 05/16/24 10:39 Pulse Oximetry 97 05/16/24 10:39 Oxygen Delivery Method Room Air 05/16/24 10:39 Medical Decision Making MDM Narrative Medical decision making narrative: Patient is a 68-year-old female presenting to emergency department for lightheadedness and dysuria. The lightheadedness as fully resolved along with her shortness of breath. She thinks this is related to anxiety. Considering her otherwise normal vital signs I am not too concerned about these to symptoms. While she does have a history of a PE she is currently satting 97-98% on room air with a normal pulse and blood pressure and she is already on warfarin. Very unlikely she has a pulmonary embolism at this time and I do not believe imaging is necessary. Will do a EKG, troponin, CBC, CMP, urinalysis. Will give her a L of fluid. Patient labs all came back showing no concerning abnormalities although her INR is slightly low at 1.69. Urinalysis shows blood in the urine but no signs of a UTI. She is feeling much better after the fluids in her EKG and troponin showed no concerning findings. Despite not being adequately anticoagulated she does not have any lower extremity edema and all her symptoms resolved but the time she arrived to the emergency department. This again seems much more likely to be anxiety and CTA would be unnecessary. Hematuria is likely from her stent which she is following up with Urology for. She ambulated around the the emergency department without issue. She will be discharged she agrees with this plan Lab Data Labs: Lab Results 05/16/24 05/16/24 05/16/24 Range/Units 10:10 10:35 11:15 WBC 6.75 (4.50-11.00) K/uL RBC 4.58 (4.00-5.20) m/uL Hgb 13.0 (12.0-16.0) gm/dL Hct 41.3 (33.0-51.0) % MCV 90 (80-100) fL MCH 28 (26-34) pg MCHC 32 (32-36) gm/dL RDW Coeff of Zohaib 14.2 (11.5-15.5) % Plt Count 346 (140-440) K/uL Neut % (Auto) 65.6 (42.0-72.0) % Lymph % (Auto) 22.5 (20-44) % [place] % (Auto) 9.2 (0.0-11.0) % Eos % (Auto) 2.2 (0.0-7.0) % Baso % (Auto) 0.4 (0.0-3.0) % Neut # (Auto) 4.42 (1.7-7.0) K/uL Lymph # (Auto) 1.52 (0.90-2.90) K/uL [place] # (Auto) 0.60 (0.00-0.90) K/UL Eos # (Auto) 0.15 (0.00-0.50) K/uL Baso # (Auto) 0.03 (0.00-0.30) K/uL Abs Immat Gran (auto) 0.01 (0.00-0.30) K/uL Imm/Tot Granulo (auto) 0.1 % INR 1.69 H (0.91-1.10) Sodium 137 (135-149) mmol/L Potassium 3.8 (3.6-5.1) mmol/L Chloride 103 (96-114) mmol/L Carbon Dioxide 27 (20-32) mmol/L Anion Gap 7 (7-15) mEq/L BUN 20 (7-30) mg/dL Creatinine 1.0 (0.5-1.5) mg/dL Estimated Creat Clear 45.85 Estimated GFR 61 ml/min Glucose 114 (60-115) mg/dL Calcium 8.9 (8.4-10.6) mg/dL Total Bilirubin 0.9 (0.1-1.5) mg/dL AST 32 (12-35) U/L ALT 23 (4-35) U/L Alkaline Phosphatase 82 (40-150) U/L Total Protein 7.7 (6.0-8.3) g/dL Albumin 4.1 (3.3-5.0) g/dL Urine Color Brown A (Yellow) Urine Appearance Cloudy A (Clear) Urine pH 5.5 (5.0-8.5) Ur Specific [place] >= 1.030 (1.000-1.030) Urine Protein 2+ A (Negative) Urine Glucose (UA) Negative (Negative) Urine Ketones Negative (Negative) Urine Blood 3+ A (Negative) Urine Nitrite Negative (Negative) Urine Bilirubin 1+ A (Negative) Urine Urobilinogen 0.2 (0.2-1.0) Ur Leukocyte Esterase Trace A (Negative) Urine RBC >100 A (0-2) Urine WBC 0-2 (0-5) Ur Squamous Epith Cells Few (None-Few) Amorphous Sediment Few A (None) Other Sediment Moderate A (None) Urine Bacteria Many A (None) Urine Yeast Moderate A (None) POC Troponin I 0.01 (0.01-0.04) ng/ml ECG Data Attestation: I personally reviewed and interpreted this ECG as follows: Prior ECG tracings: not available for review Interpretation: Normal sinus rhythm with rate 63 beats per minute, normal intervals, normal axis, no ST or T-wave abnormalities Discharge Plan Discharge Clinical Impression: Hematuria Qualifiers: Hematuria type: unspecified type Qualified Code(s): R31.9 - Hematuria, unspecified Patient Disposition: Home, Self-Care Condition: Improved Instructions: Hematuria (ED) Additional Instructions: Follow-up with urologist. Make sure to drink plenty of fluids. Return for new or worsening symptoms Prescriptions: No Action oxycodone 5 mg tablet 5 mg PO Q8H PRN (Reason: pain) Qty: 8 0RF amlodipine 5 mg tablet 5 mg PO DAILY atenolol 50 mg tablet 50 mg PO DAILY hydrochlorothiazide 25 mg tablet 25 mg PO DAILY lisinopril 40 mg tablet 40 mg PO DAILY potassium chloride 20 mEq tablet,ER particles/crystals 20 meq PO BID warfarin 1 mg tablet 1 mg PO .COMPLEX Patient Comments: take by mouth 2mg every Mon, , ; 1mg all other days Rx Instructions: 1 mg orally; oxycodone 5 mg capsule 5 mg PO Q6H PRN (Reason: pain) Qty: 15 0RF amoxicillin 500 mg capsule 1,000 mg PO BID cephalexin 500 mg capsule 500 mg PO 3XD enoxaparin 100 mg/mL syringe subcut Follow Up/Referrals: Amy Mclaughlin DO [Primary Care Provider] - Stand Alone Forms: [facility] Info Instructions
--- OUTSIDE RECORDS SUMMARY | 2024-05-16 10:17 | XMS_ITS | Clinical Summary ---
Author Organization [employer] [facility] Address [place], [place] [address] Care Team Providers Care Skidder Name Role Phone Amy Mclaughlin DO Primary Care Provider Allergies Active Allergy Reactions [...] Comment Field 07/28/2014 sneeze Cetirizine *Unknown 06/25/2012 Curtis like she was swollen Medications Medication Sig Dispensed Refills Start Date End Date Status acetaminophen (TYLENOL) 325 mg tablet Take 500 mg by mouth every 6 hours if needed for Pain. Max acetaminophen dose: 4000mg in 24 hrs. Active cholecalciferol, Vitamin D3, 2,000 unit tablet Take 1 tablet by mouth once daily. 0 4 Active triamcinolone, 55 mcg each actuation, nasal (NASACORT AQ) 55 mcg nasal sprayIndications :Environmental allergies Inhale 1 [place] to both nostrils once daily. Use as needed 16.5 mL 4 3 Active estradioL (ESTRACE) 0.01% (0.1 mg/g) vaginal creamIndications :Post-menopausal atrophic vaginitis Apply a small amount of cream to vaginal tissues nightly. 42.5 g 3 3 Active albuterol HFA (Ventolin HFA) 90 mcg/actuation inhaler Inhale 2 Puffs by mouth every 6 hours if needed. Active sennosides (Senna) 8.6 mg tablet Take 8.6 mg by mouth 2 times daily if needed for Constipation. Active triamcinolone 0.1% TOPICAL (KENALOG) 0.1 % lotion Apply topically to affected area(s) 2 times daily if needed. Active amLODIPine (NORVASC) 5 mg tabletIndication s:Essential hypertension Take 1 Tablet (5 mg) by mouth once daily. 90 Tablet 3 4 Active atenoloL (TENORMIN) 50 mg tabletIndication s:Essential hypertension Take 1 Tablet (50 mg) by mouth once daily. 90 Tablet 3 4 Active potassium chloride (KLOR-CON M20) 20 mEq extended-release tablet (part/cryst)Balbina cations:Essentia l hypertension Take 1 Tablet (20 mEq) by mouth two times daily with meals. 180 Tablet 3 4 Active hydroCHLOROthiaz rand 25 mg tabletIndication s:Essential hypertension Take 1 Tablet (25 mg) by mouth once daily. 4 Active lisinopriL (PRINIVIL; ZESTRIL) 40 mg tabletIndication s:Essential hypertension Take 1 Tablet (40 mg) by mouth once daily. 90 Tablet 3 4 Active warfarin (COUMADIN) 1 mg tabletIndication s:Pulmonary embolism on right (HC),Anticoagula tion monitoring, INR range 2-3 Take by mouth 05/21: Hold; 05/22: Hold; Otherwise 1 mg every Mon, Mon; 1.5 mg all other days in the evening OR as directed 4 Active Premarin 0.625 mg/gram vaginal creamIndications :Post-menopausal atrophic vaginitis APPLY 1/4 (ONE-QUARTER) TO 1/2 (ONE-HALF) INCH RIBBON OF CREAM TO OUTER VAGINAL AREA ONCE WEEKLY DIRECTED 30 g 3 024 Discontinued(*P atient states no longer taking) hydroCHLOROthiaz rand 25 mg tabletIndication s:Essential hypertension Take 1 Tablet (25 mg) by mouth once daily. 90 Tablet 3 4 024 Discontinued lisinopriL (PRINIVIL; ZESTRIL) 40 mg tabletIndication s:Essential hypertension Take 1 Tablet (40 mg) by mouth once daily. 90 Tablet 3 4 024 Discontinued warfarin (COUMADIN) 1 mg tabletIndication s:Pulmonary embolism on right (HC),Anticoagula tion monitoring, INR range 2-3 Take by mouth 1 mg (1 mg x 1) every Mon, Mon; 1.5 mg (1 mg x 1.5) all other days or as directed 125 Tablet 1 4 024 Discontinued(Re order (E-cancel not sent)) cephalexin (KEFLEX) 500 mg capsuleIndicatio ns:Kidney stones Take 1 Capsule (500 mg) by mouth three times daily for 5 days. 15 Capsule 4 024 Discontinued(*M edication adjustment) oxyCODONE-acetam inophen (PERCOCET) 5-325 mg per tabletIndication s:Kidney stones Take 1 Tablet by mouth every 6 hours if needed for Pain. Max acetaminophen dose: 4000mg in 24 hrs. 12 Tablet 4 024 Discontinued(*P atient states no longer taking) enoxaparin (LOVENOX) 100 mg/mL injectionIndicat ions:History of DVT (deep vein thrombosis) Inject 100 mg subcutaneous every 12 hours for 7 days. Continue until INR greater than 2 14 mL 4 024 amoxicillin (AMOXIL) 500 mg tabletIndication s:Ureteral stone Take 2 Tablets (1,000 mg) by mouth two times daily for 7 days. 28 Tablet 4 024 Active Problems Problem Noted Date Diagnosed Date Probable DICK (acute kidney injury) 05/02/2024 Stage 3a chronic kidney disease 05/01/2024 Ureterolithiasis 08/30/2023 Acute kidney injury 08/30/2023 Hypertriglyceridemia 08/30/2017 Contrast media allergy 05/19/2015 Anticoagulation monitoring, INR range 2-3 2013 Renal stone 07/31/2012 Overview: April 2024: [facility] where CT suggested a 9mm right ureteral stone (at the level of the pelvic inlet) with moderate upstream right hydroureteronephrosis, right renal edema and perinephric stranding consistent with obstructive uropathy. underwent cystoscopy with right ureteroscopy, laser lithotripsy, right ureteral stent placement on 05/02/[address] Roberto Shannon. Liver lesion 07/31/2012 Overview: -- Incidental finding [...] Last Assessment & Plan: last chest CT 2017 stable findings. NO new symptoms. Patient previously [...] Encounters Date Type Department Care Team Description 05/16/[address] [facility] [address] [facility] [place] [address] Amy Mclaughlin DO Post-op; Blood In Urine; Weak 05/10/2024 Anticoagulation (warfarin) [facility] [address] [facility] [place] [address] 1, [facility] Anticoagulation 05/09/2024 3:00 PM CDT Orders Only [facility] [address] [facility] [place] [address] Lab, [facility] 05/09/2024 Travel 05/07/2024 Anticoagulation (warfarin) [facility] [address] [facility] [place] [address] 1, [facility] Anticoagulation (Chart update: hold for 05/23/24 procedure) 05/07/[address] [facility] [address] [place] [address] Amy Mclaughlin DO Anticoagulation (Procedure Ureteral Stent removal on 05/23/24 ) 05/07/2024 Anticoagulation (warfarin) [facility] [address] [place] [address] 1, [facility] Anticoagulation 05/06/2024 2:40 PM CDT Office Visit [facility] [address] [place] [address] Jim Mendenhall MD Hospital F/U (DOD: 05/02/2024 [facility] Kidney Stone) 05/06/2024 Travel 05/04/2024 Orders Only [facility] Emergency Department [address] [place], [place] [id number] Misty Man PharmD <No scans attached> 05/03/[address] [facility] [address] [place] [address] Cyndi Oreilly, RN Primary RN Care Management; Hospital F/U ([facility] 68) 05/02/2024 9:10 AM CDT Anesthesia Event [facility] [address] [place] [address] Dannie Holcomb MD Moore, Sara Nikolai, PASQUALE 05/02/2024 9:00 AM CDT - 05/02/2024 10:[address] [facility] [address] [place] [address] Roberto Shannon MD CYSTOSCOPY RIGHT URETEROSCOPY HOLMIUM LASER LITHOTRIPSY URETERAL STENT PLACEMENT 04/30/2024 4:44 PM CDT - 05/02/2024 7:[address] [facility] [address] [place] [address] Velma Chavez MD Koshnick, Candice Regalado MD [facility] [place], MD Dana Gerber Brianna Lee, MD Geiger, Nicholas Allen, DO Kidney stones (Primary Dx); Essential hypertension; History of DVT (deep vein thrombosis) Discharge Disposition: Home Self Care 04/30/2024 Travel 04/30/[address] [facility] [address] [place] [address] Amy Mclaughlin DO PATRICK 04/29/[address] [facility] [address] [place] [address] Amy Mclaughlin, Questions 04/27/2024 Orders Only [facility] Scanner 1 scan: (1-Ord) [facility], ABDOMEN PELVIS W/O CON, 04/27/2024 04/27/2024 Orders Only [facility] Scanner 1 scan: (1-Ord) [facility], URINALYSIS, 04/27/2024 04/27/2024 Orders Only [facility] Scanner 1 scan: (1-Ord) [facility], ABDOMEN PELVIS WITHOUT CONTRAST, 04/27/2024 04/24/2024 11:45 AM CDT Orders Only [facility] [address] [place] [address] Lab, [facility] 04/24/2024 Anticoagulation (warfarin) [facility] [address] [place] [address] 1, [facility] Anticoagulation 04/24/2024 Travel 03/15/2024 11:15 AM CDT Orders Only [facility] [address] [place] [address] Lab, [facility] 03/15/2024 Anticoagulation (warfarin) [facility] [address] [place] [address] 1, [facility] Anticoagulation (Lab ) 03/15/2024 Travel 03/12/[address] [facility] [address] [place] [address] Amy Mclaughlin, Anticoagulation (Annual re-enrollment ) 02/19/[address] [facility] [address] [place] [address] Amy Mclaughlin DO <No scans attached> 02/17/2024 Anticoagulation (warfarin) [facility] [address] [place] [address] 1, [facility] Anticoagulation (OV ) 02/16/2024 3:30 PM CDT Office Visit [facility] [address] [place] [address] Amy Mclaughlin DO Medicare ANNUAL (subsequent) Visit (68 yr); Back Pain/problem 02/16/2024 3:00 PM CDT Orders Only [facility] [address] [place] [address] Lab, [facility] 02/16/2024 Travel from Last 3 Months Immunizations Name Administration [...] of Communication with Friends and Fami ly 0 05/01/2024 Financial Resource Strain Answer Date R ecorded Difficulty of Paying Living Expenses 3 05/01/2024 Difficulty of Paying Living Expenses Not on file 05/01/2024 Food Insecurity Answer Date Recorded Worried About Running Out of Food in the Last Ye ar 1 05/01/2024 Transportation Needs Answer Date Record ed Lack of Transportation (Medical) 1 05/01/2024 Housing Stability Answer Date Recorded Unable to Pay for Housing in the Last Year 1 05/01/2024 Sex and Gender Information Value Date Recorded [...] Sign Reading Time Taken Comments Blood Pressure 121/79 05/06/2024 2:43 PM CDT rec heck BP Pulse 66 05/06/2024 2:43 PM CDT Temperature 37.3 ??C (99.1 ??F) 05/02/2024 5:14 PM CD T Respiratory Rate 16 05/02/2024 5:14 PM CDT Oxygen Saturation 96% 05/06/2024 2:40 PM CDT Inhaled Oxygen Concentration - - Weight 94.1 kg (207 lb 8 oz) 05/02/2024 4:46 AM CDT Height 162.6 cm (5' 4) 05/02/2024 4:46 AM CDT Body Mass Index 35.62 05/02/2024 4:46 AM CDT Plan of Treatment Upcoming Encounters Date Type Department Care Team (Late st Contact Info) Description 05/17/2024 12:45 PM CDT Orders Only [facility] [address] [place] [address] Lab, [place] [facility] Maintenance Due Date Last [...] Completed 02/06/2024 Medical Devices Implanted Type Area Medical Imaging Director Device Identifier Shelf Expiration Date Model / Serial / Lot Stent Contour [id number] - [id number] Implanted:Qty: 1 on 05/31/2008 at [facility] Right: Ureter [facility] [id number] / / NOT DOCUMENTED Stent Uret [id number] - [id number] Implanted:Qty: 1 on 08/02/2012 at [facility] Right: Ureter [employer] Nafisa [id number] / / [id number] Stent Uret [id number] Tria Soft No Guidewire - [id number] Implanted:Qty: 1 on 05/02/2024 by Roberto Shannon MD at [facility] Right: Ureter [facility] 12/05/2026 [id number] / / [id number] Procedures Procedure Name Priority Date/Time Associated Diagnosis Comments PLATELET COUNT STAT 05/09/2024 2:38 PM CDT Pulmonary embolism on right (HC) Anticoagulation monitoring, INR range 2-3 PROTIME-INR STAT 05/09/2024 2:38 PM CDT Pulmonary embolism on right (HC) Anticoagulation monitoring, INR range 2-3 BASIC METABOLIC PANEL Routine 05/06/2024 3:41 PM CDT Kidney stone PROTIME-INR STAT 05/06/2024 3:41 PM CDT Pulmonary embolism on right (HC) Anticoagulation monitoring, INR range 2-3 XR RETROGRADE PYELOGRAM W/WO KUB Routine 05/02/2024 10:08 AM CDT ENDOTRACHEAL TUBE Routine 05/02/2024 9:3 0 AM CDT ENDOTRACHEAL TUBE Routine 05/02/2024 9:3 0 AM CDT CYSTOSCOPY PLACEMENT URETERAL STENT Class D Urgent 05/02/2024 8:55 AM CDT Right kidney stones LITHOTRIPSY URETEROSCOPY WITH LASER Class D Urgent 05/02/2024 8:55 AM CDT Right kidney stones MAGNESIUM SHELLEY 05/02/2024 6:20 AM CDT BASIC METABOLIC PANEL Early AM 05/02/2024 6:20 AM CDT PROTIME-INR Early AM 05/02/2024 6:20 AM CDT EKG 12 LEAD SHELLEY 05/01/2024 3:37 PM CDT PROTIME-INR Today 05/01/2024 3:27 PM CDT HEPATIC FUNCTION PANEL SHELLEY 05/01/2024 6:00 AM CDT LIPASE SHELLEY 05/01/2024 6:00 AM CDT PROTIME-INR Early AM 05/01/2024 6:00 AM CDT ELECTROLYTE PANEL Early AM 05/01/2024 6:0 0 AM CDT CREATININE Early AM 05/01/2024 6:[address] ABDOMEN PELVIS STONE PROTOCOL WO STAT 04/30/2024 9:55 PM CDT PROTIME-INR STAT 04/30/2024 8:45 PM CDT URINE CULTURE SHELLEY 04/30/2024 8:29 PM CDT URINALYSIS MICROSCOPIC STAT 04/30/2024 8:29 PM CDT UA W/ SEDIMENT EXAM REFLEXED PER CRITERIA STAT 04/30/2024 8:29 PM CDT BASIC METABOLIC PANEL STAT 04/30/2024 5:17 PM CDT CBC W PLT NO DIFF STAT 04/30/2024 5:1 7 PM CDT SCAN-CARDIAC STRIP 04/30/2024 12:00 AM CDT SCAN-LABORATORY REPORT 04/27/2024 12:00 AM CDT SCAN-CT INTERPRETATION 04/27/2024 12:00 AM CDT SCAN-CT INTERPRETATION 04/27/2024 12:00 AM CDT INR,POCT Routine 04/24/2024 11:29 AM CDT Pulmonary embolism on right (HC) Anticoagulation monitoring, INR range 2-3 INR,POCT Routine 03/15/2024 11:30 AM CDT Pulmonary embolism on right (HC) Anticoagulation monitoring, INR range 2-3 VITAMIN D 25 (DEFICIENCY) Add On 02/16/2024 2:33 PM CDT Osteopenia, unspecified location LIPID PANEL W REFLEX MEASURED LDL Routine 02/16/2024 2:33 PM CDT Hypertriglyceridem ia BASIC METABOLIC PANEL Routine 02/16/2024 2:33 PM [...] Recently Relevant to Health Maintenance Results * PLATELET COUNT (05/09/2024 2:38 PM CDT) PLATELET COUNT 367 140 - 440 thou/cu mm 05/09/2024 2:45 PM CDT [facility] MPV 9.8 6.5 - 11.0 fL 05/09/2024 2:45 PM CDT [facility] Blood BLOOD SPECIMEN / Unknown Butterfly / Unknown 05/09/2024 2:38 PM CDT 05/09/2024 2:41 PM CDT Narrative [facility] - 05/09/2024 2:45 PM CDT MD to monitor if out of range, to monitor for Heparin-Induced Thrombocytopenia while on lovenox. Amy Mclaughlin DO HEMATOLOGY [facility] [address] [place] [address], * (ABNORMAL) PROTIME-INR (05/09/2024 2:38 PM CDT) Only the most recent of7 resultswithin the time period is included. INR 2.3(H) <1.3 05/09/2024 9:51 PM CDT [facility] PROTIME 24.9(H) 10.3 - 12.3 sec 05/09/2024 9:51 PM CDT [facility] Blood BLOOD SPECIMEN / Unknown Butterfly / Unknown 05/09/2024 2:38 PM CDT 05/09/2024 2:41 PM CDT Narrative [facility] - 05/09/2024 9:51 PM CDT ?Therapeutic Range 2.0-3.0 for most [...] is on UFH. Amy Mclaughlin DO HEMATOLOGY [facility] [address] [place] [address], * (ABNORMAL) BASIC METABOLIC PANEL (05/06/2024 3:41 PM CDT) Only the most recent of4 resultswithin the time period is included. SODIUM 143 136 - 145 mmol/L 05/07/2024 9:11 AM CDT [facility] POTASSIUM 3.6 3.5 - 5.1 mmol/L 05/07/2024 9:11 AM CDT [facility] CHLORIDE 105 98 - 107 mmol/L 05/07/2024 9:11 AM T [facility] CO2,TOTAL 26 22 - 29 mmol/L 05/07/2024 9:11 AM T [facility] ANION GAP 12 5 - 18 05/07/2024 9:11 AM T [facility] GLUCOSE 121(H) 70 - 99 mg/dL 05/07/2024 9:11 AM T [facility] CALCIUM 9.0 8.8 - 10.2 mg/dL 05/07/2024 9:11 AM CDT [facility] BUN 13 8 - 23 mg/dL 05/07/2024 9:11 AM CDT [facility] CREATININE 1.00(H) 0.50 - 0.90 mg/dL 05/07/2024 9:11 AM CDT [facility] BUN/CREAT RATIO 13 10 - 20 9:11 AM CDT [facility] eGFR 61(L) >90 mL/min/1.7 3m2 05/07/2024 9:11 AM CDT [facility] Comment:As of 2021, eG FR is calculated by the CKD-EPI creatinine equation without race adjustment. ??eGFR can be influenced by muscle mass, exercise, and diet. ??The reported eGFR is an estimation only and is only applicable if the renal function is stable. Blood BLOOD SPECIMEN / Unknown Venipuncture / Unknown 05/06/2024 3:41 PM CDT 05/06/2024 3:41 PM CDT Jim Mendenhall MD [facility] [address] [place] [place] [address], * XR RETROGRADE PYELOGRAM W/WO KUB (05/02/2024 10:08 AM CDT) Anatomical Region Laterality Modality KIDNEYS, Abdomen Digital Radiogr aphy Narrative 05/02/2024 9:24 AM CDT 10 seconds fluoroscopy time was provided. ??See operative/procedure report for further information. Roberto Shannon MD GENERAL IMAGING * HCHG TUBE PR1, HCHG STYLET PR1 (05/02/2024 9:30 AM CDT) Narrative Lulú Berrios CRNA - 05/02/2024 9:30 AM CDT Lulú Berrios CRNA ? 05/02/2024 ??9:31 AM Procedure: ETT Patient location during procedure: OR ETT Properties Mask Ventilation: not attempted Final Technique: direct laryngoscopy Type: straight Location: oral Cuffed: yes Tube Size: 7.0 mm Stylet: yes Laryngoscope Blade: Clifford Blade Size: 2 Cormack-Lehane Grade View: 1 Insertion Attempts: 1 Placement Verification: auscultation and end tidal CO2 Assessment: pharynx clear, atraumatic and dentition unchanged Secured at: 21 Measured From: lips Difficulty: 0 (not difficult) Dannie Holcomb MD ANESTHESIA PX NOT E ORDERABLES * MAGNESIUM (05/02/2024 6:20 AM CDT) MAGNESIUM 1.7 1.6 - 2.4 mg/dL 05/02/2024 8:49 AM CDT [facility] Blood BLOOD SPECIMEN / Unknown Non-Lab Venipuncture / Unknown 05/02/2024 6:20 AM CDT 05/02/2024 6:50 AM CDT Gladys Cortez MD CHEMISTRY Performing Organization Address City/[facility] Co de Phone Number [facility] [address] [place] [address] * EKG 12 LEAD (05/01/2024 3:37 PM CDT) Interpretation Sinus bradycardia Minimal voltage criteria for LVH, may be normal variant ( R in aVL ) Inferior infarct (cited on or before 26-Aug-2011) Cannot rule out Anterior infarct , age undetermined Abnormal ECG When compared with ECG of 31-Aug-2023 09:11, No significant change was found BEYOND NOW Ventricular Rate 58 BPM BEYOND NOW Atrial Rate 58 BPM BEYOND NOW P-R Interval 166 ms BEYOND NOW QRS Duration 88 ms BEYOND NOW QT 440 ms BEYOND NOW QTc 431 ms BEYOND NOW P [place] 28 degrees BEYOND NOW R [place] -9 degrees BEYOND NOW T [place] 47 degrees BEYOND NOW 05/01/2024 3:37 PM CDT 05/02/2024 12:31 PM CDT Gladys Cortez MD EKG ORD BEYOND NOW [place], [place] * (ABNORMAL) CREATININE (05/01/2024 6:00 AM CDT) eGFR 51(L) >90 mL/min/1.7 3m2 05/01/2024 7:11 AM CDT [facility] Comment:As of 2021, eG FR is calculated by the CKD-EPI creatinine equation without race adjustment. ??eGFR can be influenced by muscle mass, exercise, and diet. ??The reported eGFR is an estimation only and is only applicable if the renal function is stable. CREATININE 1.17(H) 0.50 - 0.90 mg/dL 05/01/2024 7:11 AM CDT [facility] Blood BLOOD SPECIMEN / Unknown Butterfly / Unknown 05/01/2024 6:00 AM CDT 05/01/2024 6:24 AM CDT Candice Scanlon MD CHEMISTRY Performing Organization Address [facility] Co de Phone Number [facility] [address] [place] [address], * (ABNORMAL) Lipase FOR ADD ON (05/01/2024 6:00 AM CDT) Pathologist [facility] LIPASE 184.0(H) 13.0 - 60.0 IU/L 05/01/2024 5:36 PM CDT [facility] Blood BLOOD SPECIMEN / Unknown Butterfly / Unknown 05/01/2024 6:00 AM CDT 05/01/2024 6:24 AM CDT Gladys Cortez MD CHEMISTRY Performing Organization Address [facility]/ZIP Co de Phone Number [facility] [address] [place] [address], * (ABNORMAL) HEPATIC FUNCTION PANEL (05/01/2024 6:00 AM CDT) ALBUMIN 3.6(L) 4.0 - 4.9 g/dL 05/01/2024 5:43 PM CDT [facility] PROTEIN,TOTAL 7.3 6.0 - 8.0 g/dL 05/01/2024 5:43 PM CDT [facility] BILIRUBIN,TOTAL 0.6 0.0 - 1.2 mg/dL 05/01/2024 5:43 PM CDT [facility] BILIRUBIN,DIRECT <0.2 0.0 - 0.3 mg/dL 05/01/2024 5:43 PM CDT [facility] BILIRUBIN,INDIRE CT 05/01/2024 5:43 PM CDT [facility] Comment:Unable to calculate, Direct Bili <0.2 ALK PHOSPHATASE 69 35 - 104 IU/L 05/01/2024 5:43 PM CDT [facility] ALT (SGPT) 16 10 - 35 IU/L 05/01/2024 5:43 PM CDT [facility] AST (SGOT) 27 10 - 35 IU/L 05/01/2024 5:43 PM CDT [facility] Blood BLOOD SPECIMEN / Unknown Butterfly / Unknown 05/01/2024 6:00 AM CDT 05/01/2024 6:24 AM CDT Gladys Cortez MD CHEMISTRY [facility] [address] [place] [address], * Electrolyte panel AM (05/01/2024 6:00 AM CDT) SODIUM 139 136 - 145 mmol/L 05/01/2024 7:11 AM CDT [facility] POTASSIUM 3.5 3.5 - 5.1 mmol/L 05/01/2024 7:11 AM CDT [facility] CHLORIDE 101 98 - 107 mmol/L 05/01/2024 7:11 AM CDT [facility] CO2,TOTAL 24 22 - 29 mmol/L 05/01/2024 7:11 AM CDT [facility] ANION GAP 14 5 - 18 05/01/2024 7:11 AM CDT [facility] Blood BLOOD SPECIMEN / Unknown Butterfly / Unknown 05/01/2024 6:00 AM CDT 05/01/2024 6:24 AM CDT Candice Scanlon MD CHEMISTRY [facility] [address] [place] [address], * CT ABDOMEN PELVIS STONE PROTOCOL WO (04/30/2024 9:55 PM CDT) Anatomical Region Laterality Modality Abdomen, Pelvis, AORTA, LIVER, SPLEEN Computed Tomography 04/30/2024 10:2 9 PM CDT Impressions 04/30/2024 10:29 PM CDT 1. String of 3 obstructing stones in the distal right ureter with minimal right hydroureteronephrosis. The largest stone measures 8 mm. 2. The previously seen bilateral renal caliceal stones are no longer visualized. 3. Diffuse hepatic steatosis. 4. Cardiomegaly with trace pericardial effusion. Please note that all CT scans at this facility use dose modulation, iterative reconstruction, and/or weight-based dosing when appropriate to reduce radiation dose to as low as reasonably achievable. Dictated by Alisa Mak MD @ 04/30/2024 10:29:38 PM (Electronically Signed) Narrative 04/30/2024 10:29 PM CDT For Patients: ??As a result of the Century Cures Act, medical imaging exams and procedure reports are released immediately into your electronic medical record. ??You may view this report before your referring provider. ??If you have questions, please contact your health care provider. INDICATION: Flank pain, kidney stone suspected. TECHNIQUE: CT of the abdomen and pelvis without IV contrast. Coronal and sagittal reconstructions. COMPARISON: CT of the abdomen and pelvis 01/07/2022. FINDINGS: Diffuse hepatic steatosis. The unenhanced gallbladder, spleen, pancreas, and adrenal glands are normal in appearance. No biliary dilation. There is a string of 3 obstructing stones in the distal right ureter located approximately 1 cm above the ureterovesicular junction (series 2 images 156- 161). The largest most distal stone measures 8 mm. The other stones measure 3 mm and 4 mm. There is minimal upstream right hydroureteronephrosis. No left hydronephrosis or ureteral dilation. The previously seen bilateral calyceal stones are no longer visualized. Stable small right lower pole renal cyst. No bladder wall thickening. Small hiatal hernia. No small bowel dilation. Moderate amount of stool throughout the colon. Colonic diverticulosis without evidence of diverticulitis. Negative appendix. No intraperitoneal free air or fluid. No lymphadenopathy. Aortoiliac vascular calcifications. Small fat containing umbilical hernia. Unremarkable noncontrast appearance of the uterus and adnexa. Bibasilar atelectasis or scarring with stable postoperative changes and volume loss in the left lower lobe. Stable 6 mm noncalcified pulmonary nodule in the medial right lower lobe (series 2, image 14). Cardiomegaly. Trace pericardial effusion. Degenerative changes of the spine. Procedure Note Alisa Mak MD - 04/30/2024 For Patients: As a result of the Cures Act, medical imagingexams and procedure reports are released immediately into your electronicmedical record. You may view this report before your referring provider.If you have questions, please contact your health care provider. INDICATION: Flank pain, kidney stone suspected. TECHNIQUE: CT of the abdomen and pelvis without IV contrast. Coronal and sagittalreconstructions. COMPARISON: CT of the abdomen and pelvis 01/07/2022. FINDINGS: Diffuse hepatic steatosis. The unenhanced gallbladder, spleen, pancreas,and adrenal glands are normal in appearance. No biliary dilation. There is a string of 3 obstructing stones in the distal right ureterlocated approximately 1 cm above the ureterovesicular junction (series 2images 156-161). The largest most distal stone measures 8 mm. The otherstones measure 3 mm and 4 mm. There is minimal upstream righthydroureteronephrosis. No left hydronephrosis or ureteral dilation. Thepreviously seen bilateral calyceal stones are no longer visualized. Stablesmall right lower pole renal cyst. No bladder wall thickening. Small hiatal hernia. No small bowel dilation. Moderate amount of stoolthroughout the colon. Colonic diverticulosis without evidence ofdiverticulitis. Negative appendix. No intraperitoneal free air or fluid.No lymphadenopathy. Aortoiliac vascular calcifications. Small fatcontaining umbilical hernia. Unremarkable noncontrast appearance of theuterus and adnexa. Bibasilar atelectasis or scarring with stable postoperative changes andvolume loss in the left lower lobe. Stable 6 mm noncalcified pulmonarynodule in the medial right lower lobe (series 2, image 14). Cardiomegaly.Trace pericardial effusion. Degenerative changes of the spine. IMPRESSION: 1. String of 3 obstructing stones in the distal right ureter with minimalright hydroureteronephrosis. The largest stone measures 8 mm. 2. The previously seen bilateral renal caliceal stones are no longervisualized. 3. Diffuse hepatic steatosis. 4. Cardiomegaly with trace pericardial effusion. Please note that all CT scans at this facility use dose modulation,iterative reconstruction, and/or weight-based dosing when appropriate toreduce radiation dose to as low as reasonably achievable. Dictated by Alisa Mka MD @ 04/30/2024 10:29:38 PM (Electronically Signed) Camryn BAUTISTA CT * (ABNORMAL) URINALYSIS MICROSCOPIC (04/30/2024 8:29 PM CDT) RBC >100(A) 0-2, None Seen /HPF 04/30/2024 8:45 PM CDT [facility] WBC 6-10(A) 0-2, 3-5, None Seen /HPF 04/30/2024 8:45 PM CDT [facility] BACTERIA None Seen None Seen, Rare, Few Bacteria/ HPF 04/30/2024 8:45 PM CDT [facility] EPITHELIAL CELLS Few None Seen, Few Epi/HPF 04/30/2024 8:45 PM CDT [facility] HYALINE CASTS 11-25(A) 0-2, 3-5 /LPF 04/30/2024 8:45 PM CDT [facility] GRANULAR CASTS 0-2(A) (none) /LPF 04/30/2024 8:45 PM CDT [facility] Urine URINE SPECIMEN / Unknown Non-Blood / Unknown 04/30/2024 8:29 PM CDT 04/30/2024 8:35 PM CDT Velma Chavez MD URINE Performing Organization Address City/[facility]/ZIP Co de Phone Number [facility] [address] [address], [place] * (ABNORMAL) URINE CULTURE (04/30/2024 8:29 PM CDT) CULTURE RESULT(A) 05/04/2024 8:01 AM CDT [facility] CULTURE 10,000-50,000 CFU/mL Enterococcus faecalis 05/04/2024 8:01 AM CDT [facility] Urine URINE SPECIMEN / Unknown Non-Blood / Unknown 04/30/2024 8:29 PM CDT 04/30/2024 8:35 PM CDT Narrative Organism Antibiotic Method Susceptibility Enterococcus faecalis NITROFURANTOIN S Enterococcus faecalis AMPICILLIN S Velma Chavez MD MICROBIOLOGY Performing Organization Address [facility]/ZIP Co de Phone Number [facility] [address] [place] [address], [place] * (ABNORMAL) UA W/ SEDIMENT EXAM REFLEXED PER CRITERIA (04/30/2024 8:29 PM CDT) COLOR Yellow Yellow Color 04/30/2024 8:45 PM CDT [facility] CLARITY Cloudy(A) Clear Clarity 04/30/2024 8:45 PM CDT [facility] SPECIFIC GRAVITY,URINE 1.015 1.010, 1.015, 1.020, 1.025 04/30/2024 8:45 PM CDT [facility] PH,URINE 5.0(A) 6.0, 7.0, 8.0, 5.5, 6.5, 7.5, 8.5 04/30/2024 8:45 PM CDT [facility] UROBILINOGEN, QUALITATIVE Normal Normal EU/dl 04/30/2024 8:45 PM CDT [facility] PROTEIN, URINE Negative Negative mg/dL 04/30/2024 8:45 PM CDT [facility] GLUCOSE, URINE Negative Negative mg/dL 04/30/2024 8:45 PM CDT [facility] KETONES,URINE 40(A) Negative mg/dL 04/30/2024 8:45 PM CDT [facility] BILIRUBIN,URI NE Negative Negative 04/30/2024 8:45 PM CDT [facility] OCCULT BLOOD,URINE Moderate(A) Negative 04/30/2024 8:45 PM CDT [facility] NITRITE Negative Negative 04/30/2024 8:45 PM CDT [facility] LEUKOCYTE ESTERASE Small(A) Negative 04/30/2024 8:45 PM CDT [facility] Urine URINE SPECIMEN / Unknown Non-Blood / Unknown 04/30/2024 8:29 PM CDT 04/30/2024 8:35 PM CDT Velma Chavez MD URINE [facility] [address] [place] [address], * CBC W PLT NO DIFF (04/30/2024 5:17 PM CDT) WHITE BLOOD COUNT 7.9 4.5 - 11.0 thou/cu mm 04/30/2024 5:41 PM CDT [facility] RED BLOOD COUNT 4.67 4.00 - 5.20 mil/cu mm 04/30/2024 5:41 PM CDT [facility] HEMOGLOBIN 13.4 12.0 - 16.0 g/dL 04/30/2024 5:41 PM CDT [facility] HEMATOCRIT 41.1 33.0 - 51.0 % 04/30/2024 5:41 PM CDT [facility] MCV 88 80 - 100 fL 04/30/2024 5:41 PM CDT [facility] MCH 28.7 26.0 - 34.0 pg 04/30/2024 5:41 PM CDT [facility] MCHC 32.6 32.0 - 36.0 g/dL 04/30/2024 5:41 PM CDT [facility] RDW 13.9 11.5 - 15.5 % 04/30/2024 5:41 PM CDT [facility] PLATELET COUNT 357 140 - 440 thou/cu mm 04/30/2024 5:41 PM CDT [facility] MPV 10.2 6.5 - 11.0 fL 04/30/2024 5:41 PM CDT [facility] NRBC 0.0 % 04/30/2024 5:41 PM CDT [facility] ABS NRBC 0.0 thou /cu mm 04/30/2024 5:41 PM CDT [facility] Blood BLOOD SPECIMEN / Unknown Venipuncture / Unknown 04/30/2024 5:17 PM CDT 04/30/2024 5:33 PM CDT Velma Chavez MD HEMATOLOGY [facility] [address] [place] [address], * SCAN-CARDIAC STRIP (04/30/2024 12:00 AM CDT) Narrative 04/30/2024 12:00 AM CDT Ordered by an unspecified provider. Other Clinical Staff OTHER * SCAN-LABORATORY REPORT (04/27/2024 12:00 AM CDT) Scanner OTHER * SCAN-CT INTERPRETATION (04/27/2024 12:00 AM CDT) Only the most recent of2 resultswithin the time period is included. Anatomical Region Laterality Modality Other Scanner OTHER * (ABNORMAL) INR,POCT (04/24/2024 11:29 AM CDT) Only the most recent of2 resultswithin the time period is included. INR 2.4(H) <1.3 04/24/2024 11:33 AM CDT [facility] Blood BLOOD SPECIMEN / Unknown Capillary / Unknown 04/24/2024 11:29 AM CDT 04/24/2024 11:30 AM CDT Narrative [facility] - 04/24/2024 11:33 AM CDT ?Therapeutic Range 2.0-3.0 for most anticoagulated patients 2.5-3.5 or 4.0 for high risk patients Amy Mclaughlin DO LABORATORY [facility] [address] [place] [address], * (ABNORMAL) LIPID PANEL W REFLEX MEASURED LDL (02/16/2024 2:33 PM CDT) CHOLESTEROL,TOTAL 178 100 - 199 mg/dL 02/16/2024 9:42 PM CDT [facility] Comment: Cholesterol, Total Reference Ranges Desirable <200 mg/dL Borderline 200-239 mg/dL High >=240 mg/dL TRIGLYCERIDES 257(H) <150 mg/dL 02/16/2024 9:42 PM CDT [facility] HDL CHOLESTEROL 43 >40 mg/dL 9:42 PM CDT [facility] NON-HDL CHOLESTEROL 135 <145 mg/dl 02/16/2024 9:42 PM CDT [facility] CHOL/HDL RATIO 4.14 <4.50 02/16/2024 9:42 PM CDT [facility] LDL CHOLESTEROL 84 <=130 mg/dL 02/16/2024 9:42 PM CDT [facility] VLDL CHOLESTEROL 51(H) <=30 mg/dL 02/16/2024 9:42 PM CDT [facility] PROVIDER ORDERED STATUS RANDOM 02/16/2024 9:42 PM CDT [facility] Blood BLOOD SPECIMEN / Unknown Venipuncture / Unknown 02/16/2024 2:33 PM CDT 02/16/2024 2:36 PM CDT Amy Mclaughlin DO CHEMISTRY Performing Organization Address City/[facility]/ZIP Co de Phone Number [facility] [address] [place] [address], * VITAMIN D 25 (DEFICIENCY) (02/16/2024 2:33 PM CDT) VITAMIN D TOTAL 38.7 20.0 - 80.0 ng/mL 02/19/2024 8:36 AM CDT [facility] Blood BLOOD SPECIMEN / Unknown Venipuncture / Unknown 02/16/2024 2:33 PM CDT 02/16/2024 2:36 PM CDT Narrative [facility] - 02/19/2024 8:36 AM CDT ? Vitamin D Status Deficiency: ? <20 ng/mL Insufficiency: ?20-29 ng/mL Sufficiency: ?30-80 ng/mL Possible Toxicity: ??>80 ng/mL Based on [place] of Medicine recommendations Biotin supplements may cause clinically significant interference for this test assay. ??If interference is suspected, it is strongly recommended that biotin is discontinued for at least one week prior to retesting. Amy Mclaughlin DO SEND OUTS Performing Organization Address City/[facility]/ZIP Co de Phone Number [facility] [address] [place] [address], * (ABNORMAL) XR DXA BONE DENSITY 2 [...] recommended in 3-5 years. Lizett Membreno PA-C [facility] 02/18/2024 ?? Narrative 02/18/2024 2:20 PM CDT For Patients: Results are automatically released to your [facility] ([employer]) account once available, in compliance with federal regulations. This means that you may see your results before your provider has had a chance to review them. Please allow 2-3 business days for your provider to comment on the results. XR DXA Bone Mineral Density (BMD) EXAM LOCATION: [address] [address] PATIENT NAME: Cecilia Holley DATE OF : 1955 EXAM DATE: 02/06/2024 REQUESTING PROVIDER: Amy Mclaughlin, DO GENDER AT : female HEIGHT: 5' [...] two scanners are made by the same pediatrics hospitalist. PROCEDURE: Dual-energy x-ray absorptiometry performed with routine [...] COLONOSCOPY SCREENING (06/19/2023 12:00 AM CDT) Amy Mclaughlin DO GI PROCEDURE ORD * XR MAMMO [...] quadrant 4 cm from the nipple. Amy Peters Arnoldo DO MAMMO * ANTI HCV (06/09/2015 2:20 PM CDT) HEPATITIS C ANTIBODY Non-Reacti ve Non-Reacti ve 06/09/2015 6:44 PM CDT [facility] Blood specimen (specimen) BLOOD SPECIMEN / Unknown Venipuncture / Unknown 06/09/2015 2:20 PM CDT 06/09/2015 2:20 PM CDT Narrative [facility] - 06/09/2015 6:44 PM CDT Antibodies to HCV not detected; does not exclude the possibility of exposure to HCV. Schuyler Shell MD SEND OUTS [facility] [address] [place] [address], from Last 3 Months or Most Recently Relevant to Health Maintenance Advance Directives * Full Code (Latest Code Status on File) Date Activated Date Inactivated Comments 05/01/2024 2:31 AM 05/02/2024 9:46 PM Question Answer Comments Code Status Discussion: Reviewed Preferences * Full Code Date Activated Date Inactivated Comments 08/30/2023 10:56 [...] Comments 09/03/2011 7:04 PM 09/08/2011 3:39 PM Care Teams Skidder Relationship Specialty Start Date End Date Amy [place]claughlin [place] [address] [place] [address] PCP - General Family Practice 09/18/15
[2024-05-16 10:39] VITALS: BP 123/71; PULSE 69; RESP 18; O2SAT 97
[2024-05-16 10:47] LABS: Basophils Absolute Auto 0.03 K/uL (0.00-0.30); Basophils Percent Auto 0.4 % (0.0-3.0); Eosinophils Absolute Auto 0.15 K/uL (0.00-0.50); Eosinophils Percent Auto 2.2 % (0.0-7.0); Hematocrit 41.3 % (33.0-51.0); Immature Granulocytes Abs Auto 0.01 K/uL (0.00-0.30); Immature Granulocytes Pct Auto 0.1 %; Lymphocytes Absolute Auto 1.52 K/uL (0.90-2.90); Lymphocytes Percent Auto 22.5 % (20-44); Mean Corpuscular HGB Conc 32 gm/dL (32-36); Mean Corpuscular Hemoglobin 28 pg (26-34); Mean Corpuscular Volume 90 fL (80-100); Monocytes Percent Auto 9.2 % (0.0-11.0); Neutrophils Absolute Auto 4.42 K/uL (1.7-7.0); Neutrophils Percent Auto 65.6 % (42.0-72.0); Platelet Count* 346 K/uL (140-440); RDW Coefficient of Variation % 14.2 % (11.5-15.5); Red Blood Count 4.58 m/uL (4.00-5.20); White Blood Count* 6.75 K/uL (4.50-11.00)
[2024-05-16 10:49] LABS: Troponin, Point-of-Care* 0.01 ng/ml (0.01-0.04)
[2024-05-16 10:52] LABS: Slide Review Reflex No
[2024-05-16 11:00] LABS: INR 1.69 (0.91-1.10)
[2024-05-16 11:01] LABS: Albumin* 4.1 g/dL (3.3-5.0)
[2024-05-16 11:02] LABS: Chloride* 103 mmol/L (96-114); Potassium* 3.8 mmol/L (3.6-5.1); Sodium* 137 mmol/L (135-149)
[2024-05-16 11:04] LABS: Anion Gap 7 mEq/L (7-15); Bilirubin Total* 0.9 mg/dL (0.1-1.5); Carbon Dioxide* 27 mmol/L (20-32); Est. Creatinine Clearance* 45.85; Estimated Glomerular Filt Rate 61 ml/min
[2024-05-16 11:05] LABS: Alanine Aminotransferase* 23 U/L (4-35); Alkaline Phosphatase* 82 U/L (40-150); Aspartate Amino Transferase* 32 U/L (12-35); Blood Urea Nitrogen* 20 mg/dL (7-30); Calcium* 8.9 mg/dL (8.4-10.6); Glucose* 114 mg/dL (60-115); Total Protein* 7.7 g/dL (6.0-8.3)
[2024-05-16 11:22] LABS: Appearance Urine Cloudy (Clear); Bilirubin Urine 1+ (Negative); Blood Urine 3+ (Negative); Color Urine Brown (Yellow); Glucose Urine Negative (Negative); Ketones Urine Negative (Negative); Leukocyte Esterase Urine Trace (Negative); Nitrite Urine Negative (Negative); Protein Urine 2+ (Negative); Specific Gravity Urine >= 1.030 (1.000-1.030); Urobilinogen Urine 0.2 (0.2-1.0); pH Urine 5.5 (5.0-8.5)
[2024-05-16 11:35] LABS: Amorphous Sediment Urine Few; Bacteria Urine Many; Other Sediment Urine Moderate; RBC Urine >100 (0-2); Squamous Epithelial Cell Urine Few (None-Few); WBC Urine 0-2 (0-5)
== END 2024-05-16 12:08 | disposition home or self-care (01) ==
PROVIDERS: Emergency Provider Student in an Organized Health Care Education/Training Program; PCP Family Medicine
DX: R31.9 Hematuria, unspecified (principal)
CPT/HCPCS: 36415; 80053; 81001; 84484; 85025; 85610; 87086; 87186; 93005; 99283